=== PATIENT | female | born 1945 | race African-American/Black ===

== ENCOUNTER 2017-11-14 13:09 | Emergency (ER) | payer OTHER ==
[~2017-11-14] VITALS: Ht 165.1 cm; Wt 69.8 kg
--- NOTE | ~2017-11-14 | EKG ---
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
[~2017-11-14 13:09] MED LIST: AFEDITAB CR60 MG PO; ALDACTONE25 MG PO; AMLODIPINE BESYL5 M1 PO; ASPIR 8181 MG PO; ASPIRIN EC81 M1 PO; ASPIRIN325 PO; ATORVASTATIN CA40 MG PO; BENTYL 10 MG CA10 M1 PO; BETAXOLOL HCL20 MG PO; BYSTOLIC2.5 MG PO; CARVEDILOL12.5 MG PO; CATAPRES-TTS 10.1 MG PO; CLONIDINE HCL0.2 M2 PO; CLONIDINE0.1 PO; COD LIVER OIL1 EAC4 PO; COLACE100 MG PO; COREG6.25 MG PO; CORGARD20 M1 PO; COZAAR 50 MG TA50 M1 PO; COZAAR 50 MG TA50 M2 PO; CRESTOR20 MG PO; GARLIC OIL1 EACH PO; GLIPIZIDE ER10 MG PO; HYDROCHLOROTHIA25 M2 PO; IRON325 PO; KEFLEX500 MG PO; LANTUS SUBQ; LASIX 40 MG TAB40 M2 PO; LIPITOR40 MG PO; LOSARTAN-HCTZ1 EAC1 PO; METHOCARBAMOL500 M1 PO; METOLAZONE 2.52.5 M1 PO; NAPRO60 GM PO; NAPROSYN500 MG PO; NITROGLYCERIN0.4 MG SUBLING; NORCO 5-325 TA1 EACH PO; NORVASC10 MG PO; NORVASC5 MG PO; NOVOLOG100 UNIT/1 SUBQ; PLAVIX 75 MG TA75 M1 PO; SPIRONOLACT/HCT1 TA1 PO; SPIRONOLACTONE25 M1 PO; TOUJEO SOL300 UNIT/1 SUBQ; TRAMADOL 50 MG50 MG PO; ZANAFLEX4 MG PO
[2017-11-14] MEDS ORDERED: COZAAR100 MG PO (13:33)
[2017-11-14] MEDS ORDERED: CLONIDINE0.1 PO (13:34)
[2017-11-14] MEDS ORDERED: METOLAZONE 2.52.5 MG PO (13:36)
[2017-11-14] MEDS ORDERED: SPIRONOLACTONE25 M1 PO (13:38)
[2017-11-14] MEDS ORDERED: FUROSEMIDE 40 M40 MG PO (13:38)
[2017-11-14] MEDS ORDERED: TERAZOSIN HCL5 MG PO (13:39)
[2017-11-14] MEDS ORDERED: TOUJEO SOL300 UNIT/1 (13:41)
[2017-11-14 14:12] LABS: HEMOGLOBIN 9.3 gm/dL (12.0-15.0); MCH 29.5 pg (26.0-34.0); MCHC 33.2 g/dL (28.0-37.0); PLATELET COUNT 248 thou/uL (150-400); RBC 3.15 mil/uL (4.20-5.00); RDW 15.8 % (10.5-14.5); WBC 5.2 thou/uL (4.0-11.0)
[2017-11-14 15:00] LABS: ABSOLUTE NEUTROPHILS 3.6 thou/uL (1.4-8.2)
[2017-11-14 15:08] LABS: ANION GAP 9 mmol/L (7-16); BUN 79 mg/dL (7-18); CALCIUM 9.4 mg/dL (8.5-10.1); CHLORIDE 105 mmol/L (98-107); CO2 24 mmol/L (21-32); CREATININE 3.5 mg/dL (0.6-1.0); GLUCOSE 140 mg/dL (74-106); POTASSIUM 4.3 mmol/L (3.5-5.1); SODIUM 138 mmol/L (136-145)
[2017-11-14 15:17] LABS: ALBUMIN 3.4 g/dL (3.4-5.0); LIPASE 299 U/L (73-393); SGOT 29 U/L (15-37); SGPT 22 U/L (30-65); TOTAL BILIRUBIN 0.6 mg/dL (<0.1-1.0); TOTAL PROTEIN 7.7 g/dL (6.4-8.2); TROPONIN-I <0.06 ng/mL (<0.06)
[2017-11-14 15:31] LABS: URINE BILIRUBIN NEGATIVE (Negative); URINE BLOOD TRACE (Negative); URINE CLARITY CLEAR; URINE COLOR YELLOW; URINE GLUCOSE-RANDOM* NEGATIVE (Negative); URINE KETONES NEGATIVE (Negative); URINE NITRITE-REFLEX NEGATIVE (Negative); URINE PROTEIN (DIPSTICK) 2+ (Negative); URINE SPECIFIC GRAVITY 1.015 (1.005-1.035); URINE UROBILINOGEN 0.2 E.U./dl (0.2-1.0)
[2017-11-14 15:32] LABS: URINE LEUKOCYTES-REFLEX TRACE (Negative)
[2017-11-14] MEDS ORDERED: CIPRO500 MG PO (15:50)
[2017-11-14] MEDS ORDERED: FLAGYL500 MG PO (15:50)
[2017-11-14] MEDS ORDERED: PHENERGAN 25 MG25 M1 PO (15:51)
[2017-11-14 15:52] LABS: SQUAMOUS >10 Many /LPF (0-3)
[2017-11-14 15:53] LABS: BACTERIA-REFLEX None Seen /HPF (None Seen); CASTS None Seen /LPF (None Seen); CRYSTALS None Seen /LPF (None Seen); RENAL EPITHELIAL CELLS 0-3 Few /LPF (None Seen); URINE RBC 0-2 Rare /HPF (0-2); URINE WBC-REFLEX 0-5 Rare /HPF (0-5)
== END 2017-11-14 16:05 | disposition home or self-care (01) ==
LOC: ER 13:09
PROVIDERS: Physician Assistant
DX: I12.9 Hypertensive chronic kidney disease with stage 1 through stage 4 chronic kidney disease, or unspecified chronic kidney disease (principal); N18.9 Chronic kidney disease, unspecified; R19.7 Diarrhea, unspecified; E11.22 Type 2 diabetes mellitus with diabetic chronic kidney disease; I25.10 Atherosclerotic heart disease of native coronary artery without angina pectoris; E11.40 Type 2 diabetes mellitus with diabetic neuropathy, unspecified; Z95.5 Presence of coronary angioplasty implant and graft; Z86.73 Personal history of transient ischemic attack (TIA), and cerebral infarction without residual deficits; Z90.49 Acquired absence of other specified parts of digestive tract; Z86.2 Personal history of diseases of the blood and blood-forming organs and certain disorders involving the immune mechanism; Z79.4 Long term (current) use of insulin

== ENCOUNTER 2018-06-17 00:46 | Inpatient (IN) | payer OTHER ==
[2018-06-17] VITALS (8 sets, daily range): BP systolic 140–200; BP diastolic 43–70
[~2018-06-17] VITALS: Ht 165.1 cm; Wt 74.4 kg
--- NOTE | ~2018-06-17 | HC ---
[facility] [place] [address] CONSULTATION Name: MAR CHUN Room #: 213-P ADM IN M.R.#: [id number] Admission: 06/17/18 ������������������ Attend Phys: Ludwin Cherry MD Discharge: ������������������ Date of : 45 Report #: [id number] THIS REPORT FOR: //name// CC: Kenyon Cherry DATE OF SERVICE: 06/17/2018 REASON FOR CONSULTATION: Chronic kidney disease. HISTORY OF PRESENT ILLNESS: The patient is well known to our service, has chronic kidney disease, recent creatinine in the office at 4.2, longstanding diabetes with diabetic nephropathy. She developed chest pain on the left side of her chest requiring nitroglycerin a few days ago and this recurred yesterday and she came to the hospital and was admitted. Troponin I was elevated. Of note, in 2014, she had a heart catheterization at that time had a circumflex coronary artery with 90% stenosis, underwent angioplasty and had a drug-eluting stent placed at that time. She apparently has been relatively free of chest pain until this admission. PAST MEDICAL HISTORY: Longstanding diabetes mellitus with peripheral neuropathy, known chronic kidney disease, progressive elevation in creatinine, which was 3.7 or so 2 years ago and now only up to 4.2 in the office, 4.3 here today, previous cholecystectomy. She has had some retinopathy and had injections in her eyes and she has had previous cataract surgery. HOME MEDICATIONS: As listed include insulin, iron, aspirin 81 mg daily, atorvastatin 40 mg daily, amlodipine 5 mg b.i.d., losartan 100 mg b.i.d., clonidine 0.1 mg b.i.d., metolazone 2.5 mg daily, spironolactone 25 mg every other day, furosemide 40 mg twice a day, terazosin 5 mg daily. She also has anemia requiring Procrit injections in the office. FAMILY HISTORY: Negative for kidney disease. SOCIAL HISTORY: Lives at home. REVIEW OF SYSTEMS: GENERAL: Otherwise, she has been feeling reasonably well. EYES: Vision reasonably good. She has been getting these injections for retinopathy. ENT: Hearing okay, swallows okay. Denies mouth sores or ulcers. ENDOCRINE: Positive for the diabetes. RESPIRATORY: Denies current shortness of air. CARDIAC: She has had the angina as mentioned. No palpitations. GASTROINTESTINAL: No nausea, vomiting or diarrhea. [facility] [address] [place] [address] CONSULTATION Name: MAR CHUN Room #: 213-P [facility] IN .R.#: [id number] Admission: 06/17/18 ������������������ Attend Phys: Ludwin Cherry MD Discharge: ������������������ Date of : 45 Report #: [id number] GENITOURINARY: Good urinary stream. No hematuria or stone disease. NEUROLOGIC: She has got a little bit of numbness and tingling in her feet. PHYSICAL EXAMINATION: GENERAL: This is a somewhat stable ill-appearing patient seen in bed uncomfortable in the CCU. SKIN: Unremarkable. SKELETAL: Well developed, well nourished. No amputations. HEENT: Extraocular movements are full. Vision grossly intact. No scleral icterus. Hearing intact. Mucous membranes moist. Tongue and buccal mucosa are benign. NECK: Supple. I hear no carotid bruits, no lymphadenopathy. CHEST: Shows very scanty crackles at the lung bases. HEART: Regular. ABDOMEN: Soft and nontender. EXTREMITIES: Show no edema. Pulses are intact. NEUROLOGIC: Grossly intact. LABORATORY DATA: Creatinine 4.3, hemoglobin 9.4, potassium 4.8. Troponin I is 0.19. ASSESSMENT AND PLAN: 1. Chronic kidney disease. She has progressive chronic kidney disease. She is getting close to the need for a fistula. She is certainly at increased risk for any sort of angiographic dye procedure including cardiac catheterization. Certainly if she does become a candidate, we will have to be careful with her losartan to be sure we give her enough IV fluids, try to in someway limit her dye exposure and optimize her fluid volume status. She needs to get a stress test. 2. 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 3. Diabetes mellitus with triopathy. 4. History of coronary artery disease, status post prior circumflex stent. 5. Anemia with erythropoietic stimulating agent administration. ��������������������������������������������� ���������������������������������������� By: ��������������������������������������������� 1033 0139 Blaine Francisco MD /nt
[~2018-06-17 00:46] MED LIST changes: +CIPRO500 MG PO; +COZAAR100 MG PO; +FLAGYL500 MG PO; +FUROSEMIDE 40 M40 MG PO; +METOLAZONE 2.52.5 MG PO; +PHENERGAN 25 MG25 M1 PO; +TERAZOSIN HCL5 MG PO; +TOUJEO SOL300 UNIT/1
[2018-06-17 01:04] LABS: ABSOLUTE NEUTROPHILS 3.5 thou/uL (1.4-8.2); BASOPHILS 1.4 % (0.0-2.0); EOSINOPHILS 0.9 % (0.0-3.0); HEMOGLOBIN 9.4 gm/dL (12.0-15.0); LYMPHOCYTES 33.9 % (24.0-44.0); MCH 28.3 pg (26.0-34.0); MCHC 32.5 g/dL (28.0-37.0); PLATELET COUNT 198 thou/uL (150-400); POLYS 54.8 % (36.0-66.0); RBC 3.33 mil/uL (4.20-5.00); RDW 17.9 % (10.5-14.5); WBC 6.4 thou/uL (4.0-11.0)
[2018-06-17 01:12] LABS: ANION GAP 11 mmol/L (7-16); BUN 105 mg/dL (7-18); CALCIUM 8.5 mg/dL (8.5-10.1); CHLORIDE 101 mmol/L (98-107); CO2 25 mmol/L (21-32); CREATININE 4.3 mg/dL (0.6-1.0); GLUCOSE 231 mg/dL (74-106); POTASSIUM 4.8 mmol/L (3.5-5.1); SODIUM 137 mmol/L (136-145)
[2018-06-17 01:21] LABS: ALBUMIN 3.8 g/dL (3.4-5.0); SGOT 25 U/L (15-37); SGPT 25 U/L (30-65); TOTAL BILIRUBIN 0.2 mg/dL (<0.1-1.0); TOTAL PROTEIN 7.8 g/dL (6.4-8.2); TROPONIN-I <0.06 ng/mL (<0.06)
--- NOTE | 2018-06-17 03:09 | NUR ---
PT ADMITTED FROM ED WITH CHEST PAIN.PT HAS PREVIOUS HISTORY OF STENT IN 2015.PT ARRIVED TO UNIT VIA CART ACCOMPNIED BY FAMILY.A/OX4.FOLLOWS COMMNADS APROPRIATELY.VSS,DENIES CHEST PAIN UPON ARRIVAL TO UNIT.VIDEOTAPE OPERATOR NOTIFIED OF PT'S ARRIVAL TO UNIT.ASSESSMNET DOCUMENTED.SINUS RHYTHM ON MONITOR.UP WITH STEADY GAIT TO BATHROOM.PT DENIES ANY NEEDS AT THIS TIME.ADMISSION PAPERWORK SIGNED BY THE PT.WILL CONT TO MONITOR PER POC.
[2018-06-17 07:04] LABS: CHOLESTEROL 95 mg/dL (<200); HDL CHOLESTEROL 50 mg/dL (>40); LDL CHOLESTEROL 42.00001 mg/dL (<100); TC:HDL 1.9 Ratio (Not establshd); TRIGLYCERIDE < 15 mg/dL (<150); VLDL 3 mg/dL (<40)
--- NOTE | 2018-06-17 07:24 | EKG ---
[address] [place] [address] ELECTROCARDIOGRAM REPORT Name: MAR CHUN Room #: 213-P ADM IN M.R.#: [id number] ������������������ Admission: 06/17/18 ������������������ Attend Phys: Ludwin Cherry MD Discharge: ������������������ Date of : 45 Report #: [id number] ����������������������������������������������������������������� [id number] THIS REPORT FOR: //name// [facility] ED Test Date: 2018-06-17 Test Time: 00:48:27 Pat Name: MAR CHUN Department: Room: 213 Gender: F Loading Supervisor: SCOTT : 1945 Requested By: Muna Ortega Order Number: [id number] MD: Torito Burt Measurements Intervals [place] Rate: 86 P: 49 [place]: 158 QRS: -1 QRSD: 82 T: 151 QT: 320 QTc: 383 Interpretive Statements Sinus rhythm Poor R wave progression Nonspecific ST and T wave abnormality Compared to ECG 11/14/2017 14:16:44 Atrial premature complex(es) no longer present Electronically Signed On 06-17-2018 7:24:23 CDT by Torito Burt [email or web address] ��������������������������������������������� <ELECTRONICALLY SIGNED> ���������������������������������������� By: Torito Burt MD, [facility] ��������������������������������������������� 06/17/18 0724 0048 0048 Torito Burt MD, [facility] /EPI
--- NOTE | 2018-06-17 08:06 | EKG ---
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: : 1945 Requested By: Libertad Meraz Order Number: [id number] MD: Roel Crespo Measurements Intervals [place] Rate: 73 P: 50 AR: 168 QRS: -1 QRSD: 93 T: 174 QT: 380 QTc: 419 Interpretive Statements Sinus rhythm Nonspecific T abnormalities, lateral leads Compared to ECG 06/17/2018 00:48:27 T-wave abnormality now present Poor R-wave progression no longer present ST (T wave) deviation no longer present Electronically Signed On 06-17-2018 8:06:30 CDT by Roel Crespo [email or web address] ��������������������������������������������� <ELECTRONICALLY SIGNED> ���������������������������������������� By: Roel Crespo MD ��������������������������������������������� 06/17/18805 4 4 Roel Crespo MD /EPI
[2018-06-17 09:07] LABS: % SATURATION 36 % (20-39); IRON 76 ug/dL (50-170); TIBC 210 ug/dL (250-450)
[2018-06-17 09:34] LABS: FOLIC ACID 19.2 ng/mL (8.6-58.9)
--- NOTE | 2018-06-17 12:59 | 2DMMODE ---
[facility] [address] [place] [address] 2 D/M-MODE ECHOCARDIOGRAM Name: MAR CHUN Room #: 213-P ADM IN M.R.#: [id number] ������������� Admission: 06/17/18 ������������� Attend Phys: Ludwin Cherry, Discharge: ��� ������������� ��� Date of : 45 Date of Service: 06/17/18 1259 �� Report #: [id number] �������� ��������������������������������������������[id number] THIS REPORT FOR: //name// APPROVED REPORT Study performed: 06/17/2018 10:52:14 EXAM: Comprehensive 2D, Doppler, and color-flow Echocardiogram Patient Location: Bedside Room #: 213 Status: routine BSA: 1.82 HR: 73 bpm BP: 156/51 mmHg Rhythm: NSR Other Information Study Quality: Adequate Indications Diabetes Dyspnea CAD Chest Pain Hypertension/HDD 2D Dimensions RVDd: 37.72 mm IVSd: 15.03 (7-11mm) LVOT Diam: 19.11 (18-24mm) LVDd: 47.91 mm PWd: 14.59 (7-11mm) Ascending Ao: 25.80 (22-36mm) LVDs: 29.22 (25-40mm) Aortic Root: 25.56 mm IVC: 22.00 mm Volumes Left Atrial Volume (Systole) Single Plane 4CH: 101.58 mL Single Plane 2CH: 68.65 mL LA ESV Index: 49.00 mL/m2 Aortic Valve AoV Peak Chris.: 2.29 m/s AO Peak Gr.: 17.30 mmHg LVOT Max P.10 mmHg AO Mean Gr.: 11.51 mmHg LVOT Mean P.67 mmHg AO V2 Mean: 1.58 m/s LVOT Max V: 1.09 m/s AO V2 VTI: 48.05 cm LVOT Mean V: 0.76 m/s [facility] [address] [place] [address] 2 D/M-MODE ECHOCARDIOGRAM Name: MAR CHUN Room #: 213-P [facility] IN ..#: [id number] ������������� Admission: 06/17/18 ������������� Attend Phys: Ludwin Cherry, Discharge: ��� ������������� ��� Date of : 45 Date of Service: 06/17/18 1259 �� Report #: [id number] �������� ��������������������������������������������[id number] MARYJANE (VTI): 1.58 cm2 LVOT V1 VTI: 26.40 cm MARYJANE Vmax: 1.37 cm2 SV (LVOT): 75.69 mL Mitral Valve E/A Ratio: 1.6 MV Decel. Time: 240.12 ms MV E Max Chris.: 1.17 m/s MV A Chris.: 0.71 m/s MV PHT: 69.63 ms IVRT: 69.20 ms Pulmonary Valve PV Peak Chris.: 1.28 m/s PV Peak Gr.: 6.54 mmHg Pulmonary Vein P Vein S: 0.65 m/s P Vein A: 0.30 m/s P Vein D: 0.61 m/s P Vein A Dur.: 115.3 msec P Vein S/D Ratio: 1.07 Tricuspid Valve TR Peak Chris.: 3.43 m/s TR Peak Gr.: 47.00 mmHg PA Pressure: 57.00 mmHg Left Ventricle The left ventricle is normal size. There is normal LV segmental wall motion. Mild to moderate concentric left ventricular hypertrophy. Left ventricular systolic function is hyperdynamic. LVEF is 65-70%. Moderate diastolic dysfunction is present (pseudonormal filling). Right Ventricle The right ventricle is normal size. The right ventricular systolic function is normal. Atria Left atrium is dilated. Right atrium is dilated. Aortic Valve Aortic valve is calcified. Trace aortic regurgitation. Mild aortic stenosis. Mitral Valve The mitral valve is normal in structure. Mild mitral regurgitation. No evidence of mitral valve stenosis. [facility] [address] [place] [address] 2 D/M-MODE ECHOCARDIOGRAM Name: MAR CHUN Room #: 213-P [facility] IN M.R.#: [id number] ������������� Admission: 06/17/18 ������������� Attend Phys: Ludwin Cherry, Discharge: ��� ������������� ��� Date of : 45 Date of Service: 06/17/18 1259 �� Report #: [id number] �������� ��������������������������������������������[id number] Tricuspid Valve The tricuspid valve is normal in structure. There is mild tricuspid regurgitation. Estimated PAP 55 mmHg. There is moderate pulmonary hypertension. Pulmonic Valve The pulmonary valve is normal in structure. Trace pulmonic regurgitation. Great Vessels The aortic root is normal in size. IVC is dilated and collapses <50% with inspiration. Pericardium Small pericardial effusion. <Conclusion> Left ventricular systolic function is hyperdynamic. There is normal LV segmental wall motion. LVEF is 65-70%. Moderate diastolic dysfunction Both atria are dilated. Aortic valve is calcified. Trace aortic regurgitation. Mild aortic stenosis. The mitral valve is normal in structure. Mild mitral regurgitation Pulmonary artery pressure of 55mmHg. Small pericardial effusion. ��������������������������������������������� <ELECTRONICALLY SIGNED> ���������������������������������������� By: Torito Burt MD, FACC ��������������������������������������������� 06/17/18 1259 1259 1259 Torito Burt MD, FACC /INF
--- NOTE | 2018-06-17 17:49 | NUR ---
ASSUMED CARE, ASSESSMENT CHARTED, ALERT AND ORIENTED X4, ACHS BS, SALINE LOCK LFA, NO COMPLAINTS OF PAIN OR DISCOMFORT, FAMILY AT BEDSIDE.
[2018-06-18 04:00] VITALS: BP 135/56
[2018-06-18 05:22] LABS: ALBUMIN 3.6 g/dL (3.4-5.0); CALCIUM 9.4 mg/dL (8.5-10.1); CREATININE 4.4 mg/dL (0.6-1.0); PHOSPHORUS 3.8 mg/dL (2.5-4.9); POTASSIUM 4.8 mmol/L (3.5-5.1)
--- NOTE | 2018-06-18 05:58 | NUR ---
ASSUMED PT CARE AT 1900 WITH NO SIGN OF DISTRESS NOTED. AT THE BEGINNING OF THE SHIFT, PT STARTS TO HAVE CHILLS AND WAS COLD. PT STATES THAT THIS HAPPENS OFTEN. TEMP WAS NORMAL, NO FEVER, PT STATED SHE NEEDED BLANKET AND SHE SAYS IT IS DUE TO HER LOW IRON LEVEL. SCHEDULED MEDS ADMINISTERED TO PT. PT TOLERATED PO INTAKE. FAMILY AT BEDSIDE. DENIES ANY FURTHER NEEDS AT THIS TIME.
[2018-06-18 08:29] VITALS: BP 149/61
[2018-06-18 12:20] VITALS: BP 133/55
--- NOTE | 2018-06-18 15:48 | NUR ---
ASSUMED CARE AT 0700. PT A&OX4. PT GETS UP TO COMMODE WITH STAND BY ASSIST. PT STEADY ON FEET. PT DENIES ANY CHEST PAIN AT THIS TIME. WILL CONTINUE TO CLOSELY MONITOR PT. PT HAS HAD DAUGHTER AND NOW ANOTHER FAMILY MEMBER AT BEDSIDE ENTIRE SHIFT.
[2018-06-18 16:00] VITALS: BP 159/51
[2018-06-18 19:42] VITALS: BP 147/49
--- NOTE | 2018-06-19 03:55 | NUR ---
RECEIVE PT'S CARE AT 1920; PT. ON BED; RELATIVE AT THE BED SIDE; C/O 5TH METHATARSO PAIN; / DURING ASSESSMENT; ST. ABLE TO AMBULATE WITHOUT AIDS; VS WNL; BS 78 AT HS; JESSICA AND JARRETT LYONS CRACKERS GIVEN; BS AT MIDNIGHT 197; PT. ABLE TO REST THROUGH THE NIGHT; ASSESSMENT CHARGED; FOLLOWING POC; WILL MONITOR BS EARLY ON THE MORNING; WILL PASS ON REPORT.
[2018-06-19 04:35] VITALS: BP 146/55
[2018-06-19 05:51] LABS: ALBUMIN 3.3 g/dL (3.4-5.0); CALCIUM 9.1 mg/dL (8.5-10.1); CREATININE 4.4 mg/dL (0.6-1.0); PHOSPHORUS 3.9 mg/dL (2.5-4.9)
[2018-06-19 07:30] VITALS: BP 150/52
[2018-06-19] MEDS ORDERED: LANTUS100 UNIT/M SUBQ (10:36)
[2018-06-19 11:05] VITALS: BP 150/52
--- NOTE | 2018-06-19 12:26 | NUR ---
DISCHARGE ORDER RECEIVED, SCRIPT GIVEN. PERIPHEARL IV WAS TAKEN OUT. WAS TRANSPORTED OUT BY NURSING STAFF.
== END 2018-06-19 12:28 | disposition home or self-care (01) | DRG 303 ==
LOC: ER 00:46 → 2N 01:29 → EROBS 01:29 → 2N 01:50
PROVIDERS: Internal Medicine Nephrology; Nurse Practitioner Acute Care; Student in an Organized Health Care Education/Training Program; ADMIT Internal Medicine
DX: I25.119 Atherosclerotic heart disease of native coronary artery with unspecified angina pectoris (principal); N17.9 Acute kidney failure, unspecified; I13.0 Hypertensive heart and chronic kidney disease with heart failure and stage 1 through stage 4 chronic kidney disease, or unspecified chronic kidney disease; N18.5 Chronic kidney disease, stage 5; E11.42 Type 2 diabetes mellitus with diabetic polyneuropathy; E11.22 Type 2 diabetes mellitus with diabetic chronic kidney disease; I16.0 Hypertensive urgency; D63.8 Anemia in other chronic diseases classified elsewhere; Z60.2 Problems related to living alone; M62.838 Other muscle spasm; E11.319 Type 2 diabetes mellitus with unspecified diabetic retinopathy without macular edema; I50.9 Heart failure, unspecified; Z79.4 Long term (current) use of insulin; Z95.5 Presence of coronary angioplasty implant and graft; Z86.73 Personal history of transient ischemic attack (TIA), and cerebral infarction without residual deficits; Z98.42 Cataract extraction status, left eye; Z98.41 Cataract extraction status, right eye; Z88.8 Allergy status to other drugs, medicaments and biological substances; Z79.82 Long term (current) use of aspirin; Z79.899 Other long term (current) drug therapy
CPT/HCPCS: 10081

== ENCOUNTER 2018-12-01 17:07 | Inpatient (IN) | payer OTHER ==
[~2018-12-01] VITALS: Ht 165.1 cm; Wt 71.6 kg
[~2018-12-01 17:07] MED LIST changes: +LANTUS100 UNIT/M SUBQ
[2018-12-01 18:22] LABS: HEMOGLOBIN 8.3 gm/dL (12.0-15.0); MCV 85.2 fL (80.0-100.0); RBC 2.94 mil/uL (4.20-5.00)
[2018-12-01 18:23] LABS: ABSOLUTE NEUTROPHILS 4.1 thou/uL (1.4-8.2); BASOPHILS 0.7 % (0.0-2.0); EOSINOPHILS 0.3 % (0.0-3.0); LYMPHOCYTES 17.8 % (24.0-44.0); MCH 28.4 pg (26.0-34.0); MCHC 33.3 g/dL (28.0-37.0); MONOCYTES 7.8 % (1.0-8.0); PLATELET COUNT 205 thou/uL (150-400); POLYS 73.4 % (36.0-66.0); RDW 17.5 % (10.5-14.5); WBC 5.6 thou/uL (4.0-11.0)
[2018-12-01 18:33] LABS: CALCIUM 9.3 mg/dL (8.5-10.1); POTASSIUM 3.6 mmol/L (3.5-5.1)
[2018-12-01 18:36] LABS: APTT 26.5 Seconds (24.5-32.8); INR 1.1; PROTIME 11.1 Seconds (9.3-11.4)
[2018-12-01 18:40] LABS: TOTAL BILIRUBIN 0.4 mg/dL (<0.1-1.0); TOTAL PROTEIN 7.5 g/dL (6.4-8.2)
[2018-12-01] MEDS ORDERED: TOUJEO SOL300 UNIT/1 (19:00)
[2018-12-01 22:05] VITALS: BP 186/77
[2018-12-01 22:11] VITALS: BP 176/65
[2018-12-01 23:32] LABS: CHOLESTEROL 123 mg/dL (<200); HDL CHOLESTEROL 62 mg/dL (>40); LDL CHOLESTEROL 52 mg/dL (<100); SERUM ASSESSMENT Clear; TRIGLYCERIDE 48 mg/dL (<150); VLDL 10 mg/dL (<40)
[2018-12-01 23:42] VITALS: BP 188/72
[2018-12-02] VITALS (19 sets, daily range): BP systolic 124–178; BP diastolic 49–72
--- NOTE | 2018-12-02 04:01 | NUR ---
Admission history and assessments completed. Care plan initiated. High fall risks, fall precautions in place.
--- NOTE | 2018-12-02 06:55 | NUR ---
Patient c/o left sided chest pain 5/10. BP 149/49 HR 70's. Nitro SL given x1. Gradual chest pain relief down to 3 then 0 after 1 Nitro.
--- NOTE | 2018-12-02 09:21 | EKG ---
[address] [address] ELECTROCARDIOGRAM REPORT Name: MAR CHUN Room #: 361-P ADM IN M.R.#: [id number] Admission: 12/01/18 Attend Phys: Ludwin Cherry MD Discharge: Date of : 45 Report #: [id number] THIS REPORT FOR: //name// [facility] Test Date: 2018-12-02 Test Time: 08:17:05 Pat Name: MAR CHUN Department: Room: [facility] Gender: F Hypnotherapist: Rhonda VILLASENOR : 1945 Requested By: Bairon Wellington Order Number: [id number] MD: Torito Burt Measurements Intervals [place] Rate: 69 P: 63 OK: 162 QRS: 7 QRSD: 93 T: 186 QT: 436 QTc: 467 Interpretive Statements Sinus rhythm Abnormal T, consider ischemia, diffuse leads Compared to ECG 06/17/2018 07:25:53 T-wave abnormality is more pronounced Electronically Signed On 12-02-2018 9:20:54 CDT by Torito Burt [email or web address] <ELECTRONICALLY SIGNED> By: Torito Burt MD, FAC 12/02/18919 6 6 Torito Burt MD, FAC /EPI
--- NOTE | 2018-12-02 10:11 | 2DMMODE ---
[facility] [address] [facility] [place] [address] 2 D/M-MODE ECHOCARDIOGRAM Name: MAR CHUN Room #: 361-P ADM IN M.R.#: [id number] Admission: 12/01/18 Attend Phys: Ludwin Cherry, Discharge: Date of : 45 Report #: [id number] THIS REPORT FOR: //name// APPROVED REPORT Study performed: 12/02/2018 09:06:23 EXAM: Comprehensive 2D, Doppler, and color-flow Echocardiogram Patient Location: Echo lab Room #: [facility] Status: routine BSA: 1.78 HR: 70 bpm BP: 154/56 mmHg Rhythm: NSR Other Information Study Quality: Adequate Indications Diabetes CAD Chest Pain Hypertension/HDD 2D Dimensions RVDd: 43.78 mm IVSd: 14.99 (7-11mm) LVOT Diam: 19.17 (18-24mm) LVDd: 49.08 mm PWd: 14.56 (7-11mm) Ascending Ao: 28.36 (22-36mm) LVDs: 27.24 (25-40mm) Aortic Root: 24.93 mm IVC: 20.00 mm Volumes Left Atrial Volume (Systole) Single Plane 4CH: 106.36 mL Single Plane 2CH: 85.28 mL LA ESV Index: 59.00 mL/m2 Aortic Valve AoV Peak Chris.: 2.62 m/s AO Peak Gr.: 27.43 mmHg LVOT Max P.23 mmHg AO Mean Gr.: 13.31 mmHg LVOT Mean P.72 mmHg AO V2 Mean: 1.64 m/s LVOT Max V: 1.14 m/s AO V2 VTI: 56.04 cm LVOT Mean V: 0.74 m/s MARYJANE (VTI): 1.39 cm2 LVOT V1 VTI: 27.05 cm [facility] [place] [address] 2 D/M-MODE ECHOCARDIOGRAM Name: MAR CHUN Room #: 361-P [facility] IN .R.#: [id number] Admission: 12/01/18 Attend Phys: Ludwin Cherry, Discharge: Date of : 45 Report #: [id number] MARYJANE Vmax: 1.26 cm2 SV (LVOT): 78.02 mL Mitral Valve E/A Ratio: 2.0 MV Decel. Time: 204.30 ms MV E Max Chris.: 1.44 m/s MV A Chris.: 0.73 m/s MV PHT: 59.25 ms IVRT: 48.44 ms Pulmonary Valve PV Peak Chris.: 1.46 m/s PV Peak Gr.: 8.69 mmHg Pulmonary Vein P Vein S: 0.68 m/s P Vein A: 0.26 m/s P Vein D: 0.78 m/s P Vein A Dur.: 159.2 msec P Vein S/D Ratio: 0.87 Tricuspid Valve TR Peak Chris.: 3.41 m/s RAP Estimate: 10.00 mmHg TR Peak Gr.: 46.59 mmHg PA Pressure: 57.00 mmHg Left Ventricle The left ventricle is normal size. There is normal LV segmental wall motion. Mild concentric left ventricular hypertrophy. The left ventricular systolic function is normal. The left ventricular ejection fraction is within the normal range. LVEF is 65%. Moderate diastolic dysfunction is present (pseudonormal filling). Right Ventricle The right ventricle is normal size. The right ventricular systolic function is normal. Atria Left atrium is severely dilated. Right atrium is moderately dilated. Aortic Valve Aortic valve is calcified, mildly stenotic Trace aortic regurgitation. Calculated aortic valve area is 1.4 cm2 with maximum pressure gradient of 27 mmHg and mean pressure gradient of 13 mmHg. Mitral Valve [facility] [address] [place] [address] 2 D/M-MODE ECHOCARDIOGRAM Name: MAR CHUN Room #: 361-P [facility] IN ..#: [id number] Admission: 12/01/18 Attend Phys: Ludwin Cherry, Discharge: Date of : 45 Report #: [id number] The mitral valve is normal in structure. Mild mitral regurgitation. No evidence of mitral valve stenosis. Tricuspid Valve The tricuspid valve is normal in structure. Mild tricuspid regurgitation. PAP is estimated at 55 mmHg. Pulmonic Valve The pulmonary valve is normal in structure. Trace to mild pulmonic regurgitation. Great Vessels The aortic root is normal in size. IVC is upper limits of normal in size and collapses <50% with inspiration. Pericardium Small circumferential pericardial effusion unchanged from previous echo on 06/17/2018 <Conclusion> The left ventricular systolic function is normal. There is normal LV segmental wall motion. LVEF is 65%. Moderate diastolic dysfunction Aortic valve is calcified, mildly stenotic; trace insufficiency Calculated aortic valve area is 1.4 cm2 with maximum pressure gradient of 27 mmHg and mean pressure gradient of 13 mmHg. The mitral valve is normal in structure. Mild mitral regurgitation. Mild tricuspid regurgitation. Pulmonary artery pressure estimated at 55 mmHg. Small circumferential pericardial effusion unchanged from previous echo on 06/17/2018 <ELECTRONICALLY SIGNED> By: Torito Burt MD, FACC 12/02/18 1011 1011 1011 Torito Burt MD, FACC /INF
[2018-12-03] VITALS (9 sets, daily range): BP systolic 127–165; BP diastolic 53–75
[2018-12-03 00:08] LABS: GLYCOHEMOGLOBIN (HGB A1C) 7.3 % (4.8-5.6)
--- NOTE | 2018-12-03 04:31 | NUR ---
Patient making progress towards outcome goals. Sinus rhythm. One episode of left arm ache rating a 7/not relieved by nitro x 2. EKG obtained, no acute changes. Complete pain relief afater Hydrocodone x 1. Right groin dressing dry and intact.
[2018-12-03 05:42] LABS: HEMATOCRIT 23.6 % (37.0-47.0); HEMOGLOBIN 7.8 gm/dL (12.0-15.0); MCH 28.6 pg (26.0-34.0); MCHC 33.2 g/dL (28.0-37.0); MCV 86.1 fL (80.0-100.0); RBC 2.74 mil/uL (4.20-5.00); RDW 17.8 % (10.5-14.5); WBC 7.6 thou/uL (4.0-11.0)
--- NOTE | 2018-12-03 08:10 | EKG ---
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 Assurance Inspector: fabby : 1945 Requested By: Ludwin Cherry Order Number: [id number] MD: Torito Burt Measurements Intervals [place] Rate: 79 P: 29 OK: 166 QRS: 38 QRSD: 86 T: 242 QT: 379 QTc: 435 Interpretive Statements Sinus rhythm Nonspecific ST and T wave abnormality Baseline wander in lead(s) I,II,aVR Compared to ECG 12/02/2018 08:17:05 ST and T wave abnormality is less pronounced Electronically Signed On 12-03-2018 8:09:49 CDT by Torito Burt [email or web address] <ELECTRONICALLY SIGNED> By: Torito Burt MD, FACC 12/03/18 0809 06 06 Torito Burt MD, [facility] /EPI
[2018-12-03 08:44] LABS: ALBUMIN 3.6 g/dL (3.4-5.0); CALCIUM 8.7 mg/dL (8.5-10.1); CREATININE 4.4 mg/dL (0.6-1.0); POTASSIUM 3.7 mmol/L (3.5-5.1); TOTAL BILIRUBIN 0.3 mg/dL (<0.1-1.0); TOTAL PROTEIN 7.1 g/dL (6.4-8.2); TROPONIN-I 0.46 ng/mL (<0.06)
--- NOTE | 2018-12-03 15:31 | NUR ---
ASSESSMENT: CM REVIEWED CHART AND MET WITH PATIENT AT THE BEDSIDE. PT WAS ADMITTED WITH NSTEMI AND HAD STENT PLACED. PT REPORTS SHE LIVES AT HOME IN AN APT ALONE. PT REPORTS ABOUT 10-15 STEPS WITH HANDRAILS TO GET INTO THE APT. PT REPORTS SHE AMBULATES INDEPENDENTLY. PT REPORTS SHE HAS NOT HAD HH IN THE PAST OR BEEN TO A SNF. SHE STATES SHE IS TOO ACTIVE FOR THAT. PT REPORTS THAT SHE HAS AN APPT SCHEDULED AT THE END OF THIS MONTH FOR A POSSIBLE FISTULA FOR DIAYLSIS. RENAL IS SEEING PATIENT HERE AND IF NEEDED WILL INITIATE DIALYSIS WITH TUNNEDLED CATHETER AND COMMIT TO HEMODIALYSIS IF NEEDED. CM WAITING TO HEAR. PT ALSO WORKED WITH THERAPY AND RECOMMENDING SHE CAN RETURN HOME AT DISCHARGE. CM WILL CONTINUE TO FOLLOW TO ASSIST NEEDED.
--- NOTE | 2018-12-03 18:13 | CATHLAB ---
[facility] [address] [place] [address] INVASIVE PROCEDURE REPORT Name: MAR CHUN Room #: 361-P ADM IN ..#: [id number] Admission: 12/01/18 Attend Phys: Xavier Healy MD Discharge: Date of : 45 Report #: [id number] THIS REPORT FOR: //name// APPROVED REPORT Study performed: 12/02/2018 12:43:34 Patient Details Patient Status: In-Patient Room #: The patient is a 73 year-old female Event Personnel Blaine Atkins Hogshead Wrecker, Emiliano Ying RN, Tommy Loo RTR Jeramie, Daniel Kaur Monitor Procedures Performed Right and Left Heart Cath w/or w/o Coronarie [id number] RL SARAN Place w/wo Plasty Single RCA [id number] Renal Bilateral Peripheral Angiography [id number] CVRENALBIL Indication Chest pain Procedure Narrative The Right Groin^ was infiltrated with 1% Lidocaine subcutaneous anesthesia. A PINNACLE 6FR Sheath #[id number] sheath was inserted into the RFA^. Coronary angiography was performed using coronary diagnostic catheters. The right coronary system was accessed and visualized with a JR4 catheter. The left coronary system was accessed and visualized with a JL4 catheter. The left ventricle was accessed and visualized with a PIGTAIL catheter. Left ventriculogram was performed in 30 degree projection. Closure device was deployed with a 6 Fr MYNX. Hemostasis was obtained with manual pressure following sheath removal without any complications. The patient tolerated the procedure well and there were no complications associated with the procedure. There was no hematoma. Intraoperative Conscious Sedation Sedation start time: 13.21 Case end Time: 14.32 Fentanyl 100 mcg Versed 2.0 mg Fluoro Time: 12.56 minutes Dose: DAP 29223.00 cGycm2 1719 mGy Contrast Type and Amount: Omnipaque 125 ml [facility] [place] [address] INVASIVE PROCEDURE REPORT Name: MAR CHUN Room #: 361-P [facility] IN ..#: [id number] Admission: 12/01/18 Attend Phys: Xavier Healy MD Discharge: Date of : 45 Report #: [id number] Hemodynamics The right atrial mean pressure is 17 mmHg. The right ventricular pressure is 50/4 mmHg. The pulmonary artery pressure is 47/12 mmHg with a mean of 28 mmHg. The mean pulmonary capillary wedge pressure is 21 mmHg. The aortic pressure is 148/59 mmHg with a mean of 87 mmHg. The left ventricular pressure is 165/8 mmHg with a mean of mmHg. The left ventricular end diastolic pressure is 32 mmHg. PCI Technique Lesion Percutaneous coronary intervention was performed on the mid right coronary artery. A JR4 Guide Catheter was used to engage the ostium. A LUGE Interventional Guidewire was used to cross the lesion. BALLOON DILATION A Balloon catheter 2.25X12 SPRINTER was inserted and inflated up to 10.00atm for 18seconds. Additional Inflation: 8.00atm for 29seconds. STENT DEPLOYMENT A drug-eluting stent 2.5X12 XIENCE KARSON was inserted and inflated up to 14.00atm for 22seconds. Additional Inflation: 16.00atm for 26seconds. POST STENT DEPLOYMENT BALLOON DILATION A Balloon catheter 2.75X12 NC TREK was inserted and inflated up to 15.00atm for 27seconds. Additional Inflation: 18.00atm for 41seconds. Conclusion #1 successful PTCA stent of a subtotal proximal RCA lesion placement of a 2 5 x 12 Karson medicated stent postdilated 2.7 mm PHIL grade 3 flow dominant vessel with moderate calcification. #2 left main short free of disease giving rise to LAD and circumflex #3 LAD with proximal calcification mild diffuse disease is noted appears to be prior proximal stents placed with moderate restenosis this extends around the apex. #4 circumflex OM is a large vessel low-dose extensive distribution there is a mid circumflex stent which is widely patent and diffuse disease distally is moderate in size anatomically nondominant #5 right renal artery has eccentric lesion of 30-40%. #6 left renal artery with an eccentric lesion of 70-80% calcification will follow noninvasively #7 hyperdynamic LV function EF 70% [facility] [address] [place] [address] INVASIVE PROCEDURE REPORT Name: MAR CHUN Room #: 361-P [facility] IN ..#: [id number] Admission: 12/01/18 Attend Phys: Xavier Healy MD Discharge: Date of : 45 Report #: [id number] Regulations plan: Continue aggressive risk factor modification. We'll transfer back to U to follow post stent protocol. Renal stenosis will be follow noninvasively and discuss with nephrology. <ELECTRONICALLY SIGNED> By: Blaine Atkins MD, FACC 12/03/181812 12 12 Blaine Atkins MD, FACC /INF
--- NOTE | 2018-12-03 18:43 | NUR ---
DID COMPLAIN OF PAIN TO LEFT ARM AND PRN PAIN MEDICATION ADMINISTERED AND IT WAS EFFECTIVE. PATIENTIS ALERT ORIENTED X4. UP AD SAVANA. WILL CONT WITH PLAN OF CARE.
[2018-12-04] VITALS (8 sets, daily range): BP systolic 114–159; BP diastolic 46–69
[2018-12-04 04:57] LABS: HEMATOCRIT 21.2 % (37.0-47.0); HEMOGLOBIN 7.1 gm/dL (12.0-15.0); MCH 28.9 pg (26.0-34.0); MCHC 33.6 g/dL (28.0-37.0); RBC 2.46 mil/uL (4.20-5.00); RDW 17.4 % (10.5-14.5); WBC 8.7 thou/uL (4.0-11.0)
[2018-12-04 05:11] LABS: ALBUMIN 3.3 g/dL (3.4-5.0); CALCIUM 8.7 mg/dL (8.5-10.1); PHOSPHORUS 4.2 mg/dL (2.5-4.9); POTASSIUM 3.9 mmol/L (3.5-5.1)
[2018-12-04 05:15] LABS: CREATININE 5.9 mg/dL (0.6-1.0)
--- NOTE | 2018-12-04 05:23 | NUR ---
PT MAKING PROGRESS TOWARDS GOALS. PT HAS DENIED CHEST PAIN THROUGHOUT THE NIGHT UNTIL THIS MORNING. APPROXIMATELY 0420 PT C/O TOOTH PAIN ON BOTH SIDES OF HER LOWER JAW. "I'VE BEEN NEEDING TO GET TO THE DENTIST TO HAVE THESE TEETH PULLED AND JUST NOT MADE IT THERE YET." ASKED IF THE TOOTHACHE WAS THE SAME TYPE OF PAIN WITH PREVIOUS EPISODES OF TOOTH PAIN AND THE PT REPLIED "YES." DENIED ANY CHEST PAIN AND ALSO STATED THAT SHE WAS HAVING NO PAIN IN HER LEFT SHOULDER/ARM. DID PROVIDED ONE LORTAB FOR PAIN PER ORDERS AND DID PLACE PREVIOUSLY HELD NITROPASTE 1 INCH TO LEFT UPPER ARM PRECAUTION. WITHIN FIVE MINUTES, PT CALLED AND STATED THAT SHE FELT SUDDENLY NAUSEATED. WHEN ASKED IF THERE WAS ANY PRECURSOR TO THE NAUSEA SHE RELAYED THAT THERE A SUDDEN SPIKE IN THE TOOTH PAIN. DID AGAIN ASK ABOUT ANY CHEST PAIN AND SHE STATED SHE WAS THEN FEELING SOME HEAVINESS OVER HER CHEST. IV ZOFRAN GIVEN THAT RESOLVED THE NAUSEA WITHIN A FEW MINUTES. EKG DONE, DISCUSSED WITH PNEUMATIC TUBE FITTER. PT THEN STATED THAT THERE WAS NO MORE CHEST HEAVINESS, ONLY THE TOOTH PAIN. CONTINUE TO MONITOR.
--- NOTE | 2018-12-04 20:23 | NUR ---
PATIENT SLOW TO SHOW PROGRESS. LABS REVIEWED WITH PATIENT WELL PLAN OF CARE. SHE EXPRESSED SHE FEELS SCARED BECAUSE OF THE PLAN FOR DIALYSIS. NURSE PROVIDED REASSURANCE AND SAT IN HER ROOM TO TALK WITH HER TODAY. NURSE TALKED WITH DR. QUEEN ABOUT HEART RATE LOWEST KNOWN 46BPM. HE EXPRESSED THIS IS OK. THIS WAS EXPLAINED TO THE PATIENT.
[2018-12-05 04:02] VITALS: BP 121/53
[2018-12-05 06:01] LABS: CALCIUM 8.3 mg/dL (8.5-10.1); PHOSPHORUS 5.5 mg/dL (2.5-4.9); POTASSIUM 5.2 mmol/L (3.5-5.1)
[2018-12-05 06:05] LABS: CREATININE 8.2 mg/dL (0.6-1.0)
[2018-12-05 07:41] VITALS: BP 144/60
--- NOTE | 2018-12-05 08:33 | NUR ---
ASSUMED CARE OF PT AT 1900. A&Ox4, COOPERATIVE. VS STABLE OVER NOC. CRITICAL CREAT OF 8.2 THIS AM, SINTER FEEDER CONTACTED, NO NEW ORDERS. NO URINATION OVER NOC. SLOW PROGRESSION TOWARDS POC GOALS.
[2018-12-05 11:14] VITALS: BP 119/49
[2018-12-05 15:51] VITALS: BP 129/60
[2018-12-05 20:30] VITALS: BP 144/62
--- NOTE | 2018-12-05 21:22 | NUR ---
PT VERY CONFUSED AND DROWSY TODAY. EXTENSIVE DIALYSIS EDUCATION DONE WITH FAMILY.
[2018-12-06 03:30] VITALS: BP 152/59
[2018-12-06 05:32] LABS: WBC 6.3 thou/uL (4.0-11.0)
[2018-12-06 05:33] LABS: MCH 29.6 pg (26.0-34.0); MCHC 34.7 g/dL (28.0-37.0); MCV 85.1 fL (80.0-100.0); RBC 2.35 mil/uL (4.20-5.00); RDW 17.2 % (10.5-14.5)
[2018-12-06 05:42] LABS: ALBUMIN 2.8 g/dL (3.4-5.0); PHOSPHORUS 7.4 mg/dL (2.5-4.9); POTASSIUM 4.6 mmol/L (3.5-5.1)
[2018-12-06 05:50] LABS: INR 1.1; PROTIME 11.7 Seconds (9.3-11.4)
[2018-12-06 06:01] LABS: CREATININE 9.9 mg/dL (0.6-1.0)
[2018-12-06 07:36] VITALS: BP 127/59
--- NOTE | 2018-12-06 08:46 | EKG ---
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 : 1945 Requested By: Blaine Atkins Order Number: [id number] MD: Torito Burt Measurements Intervals [place] Rate: 86 P: 47 ND: 170 QRS: -3 QRSD: 88 T: 162 QT: 382 QTc: 457 Interpretive Statements Sinus rhythm Poor R wave progression Nonspecific ST and T wave abnormality Compared to ECG 12/02/2018 20:07:08 No significant change was found Electronically Signed On 12-06-2018 8:45:57 CDT by Torito Burt [email or web address] <ELECTRONICALLY SIGNED> By: Torito Burt MD, [facility] 12/06/18 0845 7 7 Torito Burt MD, [facility] /EPI
--- NOTE | 2018-12-06 08:58 | EKG ---
[place] [address] [facility] [employer] [address] ELECTROCARDIOGRAM REPORT Name: CHUNMAR RICK Room #: 361-P ADM IN M.R.#: [id number] Admission: 12/01/18 Attend Phys: Xavier Healy MD Discharge: Date of : 45 Report #: [id number] THIS REPORT FOR: //name// [facility] Test Date: 2018-12-04 Test Time: 05:00:55 Pat Name: MAR CHUN Department: Room: 361 P Gender: F Sheet Folder: BRIDGER New : 1945 Requested By: Xavier Healy Order Number: [id number] MD: Torito Burt Measurements Intervals [place] Rate: 105 P: 51 TN: 186 QRS: -2 QRSD: 100 T: 197 QT: 324 QTc: 429 Interpretive Statements Sinus tachycardia Poor R wave progression Nonspecific ST and T wave abnormality Compared to ECG 12/02/2018 20:07:08 No significant change was found Electronically Signed On 12-06-2018 8:57:52 CDT by Torito Burt [email or web address] <ELECTRONICALLY SIGNED> By: Torito Burt MD, [facility] 12/06/18 0857 0500 0500 Torito Burt MD, [facility] /EPI
--- NOTE | 2018-12-06 09:48 | NUR ---
PT OFF UNIT TO IR FOR DIALYSIS CATHETER.
--- NOTE | 2018-12-06 10:25 | NUR ---
ON-GOING ASSESSMENT: PT IS GOING OT IR TODAY FOR PLACEMENT OF TEMPORARY DIALYSIS CATHETER. CM SPOKE WITH DR. GONSALES WHO REPORTS PATIENT WANTS TO GET DIALYSIS OUTPATIENT AT [facility] AND TO WORK ON THIS PLAN. CM CONTACTED [facility] AND SPOKE WITH ROHITH TO NOTIFY HER WELL FAXED INFORMATION IN ATTEMPTS TO START GETTING PATIENT SET UP FOR OUTPATIENT DIALYSIS. CM WILL CONTIUE TO FOLLOW TO ASSIST NEEDED.
--- NOTE | 2018-12-06 10:49 | NUR ---
PT RETURN TO UNIT.
[2018-12-06 11:30] VITALS: BP 147/56
--- NOTE | 2018-12-06 12:49 | NUR ---
pt starting dialysis in room at thsi time.
[2018-12-06 15:33] LABS: % SATURATION 12 % (20-39); IRON 18 ug/dL (50-170); TIBC 148 ug/dL (250-450)
[2018-12-06 16:30] LABS: FOLIC ACID 48.6 ng/mL (8.6-58.9)
[2018-12-06 17:17] VITALS: BP 142/69
--- NOTE | 2018-12-06 19:31 | NUR ---
Patient had a right temporary dialysis catheter placed today and had dialysis this afternoon. Patient is working towards discharge goals.
[2018-12-06 19:48] VITALS: BP 150/62
--- NOTE | 2018-12-06 23:57 | NUR ---
having pain to rt incision site, where the dialysis catheter was placed 12/06. it continues to lenesegundo. report included that we should reinforce the dressing.
--- NOTE | 2018-12-07 03:31 | NUR ---
awoke with a feeling of dry throat tightness. oxyegn on the floor and temperature very hot in room with door shut. she wasy very nuseaous. her dialysis site is wicking fluid away from the incision site that is light pink. gave her some zofran and sheis feeling better, encouraged her to keep the oxygen on. she was 83% on room air. she is wearing 2.5 liters.
[2018-12-07 03:46] VITALS: BP 134/45
[2018-12-07 05:39] LABS: RDW 16.9 % (10.5-14.5); WBC 5.6 thou/uL (4.0-11.0)
[2018-12-07 05:43] LABS: MCH 29.2 pg (26.0-34.0); MCHC 34.5 g/dL (28.0-37.0); MCV 84.6 fL (80.0-100.0); RBC 2.03 mil/uL (4.20-5.00)
[2018-12-07 05:55] LABS: ALBUMIN 2.5 g/dL (3.4-5.0); CALCIUM 7.9 mg/dL (8.5-10.1); PHOSPHORUS 5.7 mg/dL (2.5-4.9); POTASSIUM 4.2 mmol/L (3.5-5.1)
[2018-12-07 05:56] LABS: HEMATOCRIT 17.2 % (37.0-47.0); HEMOGLOBIN 5.9 gm/dL (12.0-15.0)
[2018-12-07 06:09] LABS: CREATININE 6.8 mg/dL (0.6-1.0)
[2018-12-07 07:36] LABS: HEMOGLOBIN 5.9 gm/dL (12.0-15.0)
[2018-12-07 08:35] VITALS: BP 162/81
--- NOTE | 2018-12-07 08:39 | HC ---
[facility] [place] [address] CONSULTATION Name: MAR CHUN Room #: 361-P ADM IN M.R.#: [id number] Admission: 12/01/18 Attend Phys: Xavier Healy MD Discharge: Date of : 45 Report #: [id number] THIS REPORT FOR: //name// CC: [facility] physician/PCP Ludwin Cherry REASON FOR CONSULTATION: Chronic kidney disease. REASON FOR PRESENTATION: Shoulder pain radiating to the arms. HISTORY OF PRESENT ILLNESS: Well-known patient to us. She is on end-stage renal disease due to diabetes mellitus and diabetic nephropathy. She is known to have coronary artery disease, status post heart catheterization back in 2014 with a drug-eluting stent to the circumflex. She has been chest pain free up until June of this year when she started to have similar symptoms. She presented yesterday with left shoulder pain radiating to the left upper extremity concerning for an angina equivalent and was admitted accordingly. From the renal perspective, she is known to have advanced chronic kidney disease. She previously has a baseline creatinine of around 3; however, this had been progressing. Most recently, her creatinine was in the 4 range. She is being prepared for hemodialysis and is supposed to go and see our vascular surgeon to place an AV fistula to initiate her on dialysis. PAST MEDICAL HISTORY: 1. Coronary artery disease. 2. Diabetes mellitus. 3. Hypertension. 4. End-stage renal disease. 5. Post-cholecystectomy. 6. Seizure disorder. 7. Peripheral neuropathy. ALLERGIES: LISINOPRIL. FAMILY HISTORY: Significant for hypertension and coronary artery disease. SOCIAL HISTORY: No reported drug or alcohol abuse. MEDICATIONS: 1. Ferrous sulfate. 2. Atorvastatin. 3. Clonidine. 4. Furosemide. 5. Metolazone. REVIEW OF SYSTEMS: GENERAL: No fever or chills. [facility] [address] [place] [address] CONSULTATION Name: MAR CHUN Room #: 361-P [facility] IN ..#: [id number] Admission: 12/01/18 Attend Phys: Xavier Healy MD Discharge: Date of : 45 Report #: [id number] CARDIOVASCULAR: As per the history of present illness. PULMONARY: No cough or hemoptysis. GASTROINTESTINAL: No nausea or vomiting. GENITOURINARY: No frequency, no urgency. MUSCULOSKELETAL: Left shoulder pain. NEUROLOGICAL: No headache, no dizziness. SKIN: No rash or ulcerations PHYSICAL EXAMINATION: VITAL SIGNS: His blood pressure is 150/56, pulse is 69, temperature is 37. HEAD AND NECK: No jugular venous distention, no bruit, no thyromegaly. CHEST: No crackles. CARDIOVASCULAR: Regular with no rub detected. ABDOMEN: Soft, nontender with no hepatosplenomegaly. LOWER EXTREMITIES: No edema with intact peripheral pulses. LABORATORY DATA: Reviewed. Hemoglobin is 8.3. Sodium is 136, potassium is 3.6, BUN is 100, creatinine is 4.0. IMPRESSION AND PLAN: 1. Chronic kidney disease. 2. Angina equivalent. 3. Known history of coronary artery disease. 4. Hypertension. 5. Hyperlipidemia. 6. Anemia. 7. Diabetes mellitus. 8. Very concerning presentation with typical symptoms of coronary artery disease and elevated troponin. She previously had a drug-eluting stent to her circumflex back in 2014. She will likely need another catheter and the risk of contrast was discussed with the patient. The patient is being prepared for dialysis and is supposed to have a visit with the vascular surgeon for an AV fistula this month. 9. We will discuss with the cardiac team. I am hoping that we could get her through after the cardiac catheterization without the need to dialysis. Otherwise, we will have to place a temporary or a tunneled dialysis catheter and initiate on dialysis and arrange for the AV fistula to be placed down the road. 10. Blood pressure control. 11. We will continue to follow. <ELECTRONICALLY SIGNED> By: Ari Pimentel MD 12/07/18 0839 0918 0020 Ari Pimentel MD /nt
--- NOTE | 2018-12-07 09:53 | NUR ---
FIRST UNIT OF BLOOD GIVEN BY FINANCIAL AID MANAGER.
--- NOTE | 2018-12-07 11:24 | NUR ---
PT WILL OBTAIN NEW TUNNELED DIALYSIS CATHETER IN THE AM. PT HAD CP AT THE BEGINING OF DIALYSIS AND AL-ABSI ORDERED CXRY. CHEST PAIN HAS RESOLVED.
[2018-12-07 12:16] VITALS: BP 169/59
[2018-12-07 13:15] VITALS: BP 162/81
--- NOTE | 2018-12-07 13:17 | NUR ---
ON-GOING ASSESSMENT: CM REVIEWED CHART AND SPOKE WITH ATTENDING. PT IS GETTING HER SECOND DIALYSIS TREATMENT TODAY. PTS HEMOGLOBIN IS ALSO LOW AND PT IS TO GET TRANSFUSION. LAURA HAS BEEN WORKING WITH [facility] TO SET UP A CHAIR TIME FOR PATIENT. LAURA SPOKE WITH ROHITH AT [facility] WHO GAVE A LIST OF CHAIR TIMES OPEN FOR PATIENT FOR TUESDAYS/THURSDAYS/SATURDAYS. LAURA DISCUSSED WITH PATIENT AND HER FAMILY AND SHE WANTS TO DO 10:30AM CHAIR TIME. PTS FAMILY WILL ROTATE TAKING HER TO DIALYSIS. LAURA NOTIFIED ROHITH AT [facility] OF HER CHAIRTIME REQUEST. PT IS TO GET PERMANENT DIALYSIS CATHETER TOMORROW. ONCE PT IS MEDICALLY STABLE CM WILL NEED TO FAX FLOW SHEETS AND HEP B SURFACE ANTIGEN TO [facility]. CM WILL CONTINUE TO FOLLOW TO ASSIST NEEDED.
--- NOTE | 2018-12-07 14:10 | NUR ---
Assess due to pt new start of dialysis. Appetite has been fair but just not real fond of food. Wt loss about 7 lb from 06/2018-mild loss. Reviewed alternative menu with pt and indicated staff available for assistance to help with renal choices. Diet education provided to pt and family. Pt does not want any oral supplements. Low nutrition risk
[2018-12-07 16:08] LABS: HEPATITIS B SURFACE AG Negative (Negative)
[2018-12-07 17:08] VITALS: BP 150/56
--- NOTE | 2018-12-07 17:35 | NUR ---
PT HAD DIALYSIS AGAIN TODAY AND 2 UNITS PRBC TRANSUFSED DURING DIALYSIS. PT WILL HAVE TUNNELED DIALYSIS CATH PLACED IN THE AM AND BE NPO AFTER NIDNIGHT. WILL CONTINUE TO ASSESS.
[2018-12-07 20:25] LABS: HEMATOCRIT 25.9 % (37.0-47.0)
[2018-12-07 20:31] LABS: HEMOGLOBIN 8.9 gm/dL (12.0-15.0)
[2018-12-07 20:40] VITALS: BP 150/52
--- NOTE | 2018-12-08 02:36 | NUR ---
ASSUMED CARE OF PT AT 1900. A&Ox4, COOPERATIVE. VS STABLE. SR ON TELE. DENIED PAIN. GROIN SITE MONITORED FROM STENT PLACEMENT. DRESSING STILL IN PLACE, C/D/I, TENDER TO PALPATION, NO HEMATOMA OR BRUISING OBSERVED. PT AND FAMILY HAVE SEVERAL QUESTIONS REGARDING TUNNELED DIALYSIS CATHETER, INFORMATION PROVIDED ABLE. UP TO BEDSIDE COMMODE, SMALL BM AND 500mL UOP SO FAR THIS SHIFT. NPO SINCE MIDNIGHT FOR PROCEDURE. CURRENTLY RESTING. DAUGHTER AT BEDSIDE. PROGRESSING WELL TOWARDS POC GOALS.
[2018-12-08 04:00] VITALS: BP 138/58
[2018-12-08 05:52] LABS: HEMATOCRIT 25.1 % (37.0-47.0); HEMOGLOBIN 8.6 gm/dL (12.0-15.0); MCH 29.3 pg (26.0-34.0); MCHC 34.3 g/dL (28.0-37.0); MCV 85.4 fL (80.0-100.0); RBC 2.93 mil/uL (4.20-5.00); RDW 15.5 % (10.5-14.5); WBC 5.8 thou/uL (4.0-11.0)
[2018-12-08 06:08] LABS: ALBUMIN 2.5 g/dL (3.4-5.0); PHOSPHORUS 4.3 mg/dL (2.5-4.9); POTASSIUM 3.5 mmol/L (3.5-5.1)
[2018-12-08 06:11] LABS: CREATININE 4.7 mg/dL (0.6-1.0)
[2018-12-08 09:24] VITALS: BP 154/85
--- NOTE | 2018-12-08 14:32 | NUR ---
on-going assessment: LAURA REVIEWED CHART AND MET WITH PT AT THE BEDSIDE. PT WAS A LIKELY DISCHARGE TODAY. LAURA SOPKE WITH DR. GONSALES PT GOT HER PERMANENT DIALYSIS CATHETER TODAY AND RECEIVED THIRD DIALYSIS TREATMENT. LAURA NOTIFIED HIM THAT [facility] HAS ARRANGED HER OUTPATIENT DIALYSIS BUT ONLY SCHEDULE AVAILABLE WAS T-TH-SAT 1030AM. HE STATES PATIENT CAN START DIALYSIS ON THURSDAY. LAURA NOTIFIED ROHITH AT [facility] AND ALSO NOTIFIED PT THEY WOULD LIKE HER TO COME INTO THEIR OFFICE ON THURSDAY TO COMPLETE PAPERWORK BEFORE DIALYSIS ON THURSDAY. LAURA INSTRUCTED PT SHE WOULD NEED TO BRING HER PHOTO ID, INSURANCE CARD, BOTTLES OF MEDS, AND A BLANKET. PT HAD SAT EXERCISE TEST COMPLETED AND DOES NOT REQUIRE HOME OXYGEN. PTS FAMILY IS THERE WITH PT TO TAKE HER HOME.
[2018-12-08] MEDS ORDERED: METOPROLOL SUCC50 MG PO (15:52)
[2018-12-08] MEDS ORDERED: IMDUR 30 MG TAB30 M1 PO (15:52)
[2018-12-08] MEDS ORDERED: CLOPIDOGREL75 MG PO (15:52)
[2018-12-08 16:03] VITALS: BP 162/81
[2018-12-08 16:06] VITALS: BP 150/66
[2018-12-08 16:43] VITALS: BP 162/81
== END 2018-12-08 18:30 | disposition home or self-care (01) | DRG 246 ==
LOC: ER 17:07 → 3W 19:31 → EROBS 19:31 → 3W 22:19 → ENTRNSPT 12-08 18:09 → 3W 12-08 18:30
PROVIDERS: Emergency Medicine; Hospitalist; Internal Medicine; Internal Medicine Cardiovascular Disease; Nurse Practitioner Acute Care; Physician Assistant; ADMIT Internal Medicine
PROC: B2151ZZ Fluoroscopy of Left Heart using Low Osmolar Contrast (ICD-10-PCS; principal; 2018-12-02)
PROC: 027034Z Dilation of Coronary Artery, One Artery with Drug-eluting Intraluminal Device, Percutaneous Approach (ICD-10-PCS; principal; 2018-12-02)
PROC: 4A023N8 Measurement of Cardiac Sampling and Pressure, Bilateral, Percutaneous Approach (ICD-10-PCS; principal; 2018-12-02)
PROC: B2111ZZ Fluoroscopy of Multiple Coronary Arteries using Low Osmolar Contrast (ICD-10-PCS; principal; 2018-12-02)
PROC: B5181ZA Fluoroscopy of Superior Vena Cava using Low Osmolar Contrast, Guidance (ICD-10-PCS; 2018-12-06)
PROC: 5A1D70Z Performance of Urinary Filtration, Intermittent, Less than 6 Hours Per Day (ICD-10-PCS; 2018-12-06)
PROC: B548ZZA Ultrasonography of Superior Vena Cava, Guidance (ICD-10-PCS; 2018-12-06)
PROC: 02HV33Z Insertion of Infusion Device into Superior Vena Cava, Percutaneous Approach (ICD-10-PCS; 2018-12-06)
PROC: 30233N1 Transfusion of Nonautologous Red Blood Cells into Peripheral Vein, Percutaneous Approach (ICD-10-PCS; 2018-12-07)
PROC: 5A1D70Z Performance of Urinary Filtration, Intermittent, Less than 6 Hours Per Day (ICD-10-PCS; 2018-12-07)
PROC: 5A1D70Z Performance of Urinary Filtration, Intermittent, Less than 6 Hours Per Day (ICD-10-PCS; 2018-12-08)
PROC: 0JH63XZ Insertion of Tunneled Vascular Access Device into Chest Subcutaneous Tissue and Fascia, Percutaneous Approach (ICD-10-PCS; 2018-12-08)
PROC: B548ZZA Ultrasonography of Superior Vena Cava, Guidance (ICD-10-PCS; 2018-12-08)
PROC: 02HV33Z Insertion of Infusion Device into Superior Vena Cava, Percutaneous Approach (ICD-10-PCS; 2018-12-08)
PROC: B5181ZA Fluoroscopy of Superior Vena Cava using Low Osmolar Contrast, Guidance (ICD-10-PCS; 2018-12-08)
DX: I21.4 Non-ST elevation (NSTEMI) myocardial infarction (principal); N18.6 End stage renal disease; I50.32 Chronic diastolic (congestive) heart failure; I13.2 Hypertensive heart and chronic kidney disease with heart failure and with stage 5 chronic kidney disease, or end stage renal disease; D62 Acute posthemorrhagic anemia; E11.22 Type 2 diabetes mellitus with diabetic chronic kidney disease; I25.10 Atherosclerotic heart disease of native coronary artery without angina pectoris; E11.42 Type 2 diabetes mellitus with diabetic polyneuropathy; D63.1 Anemia in chronic kidney disease; E78.5 Hyperlipidemia, unspecified; I27.20 Pulmonary hypertension, unspecified; E87.5 Hyperkalemia; Z79.4 Long term (current) use of insulin; Z95.5 Presence of coronary angioplasty implant and graft; Z86.73 Personal history of transient ischemic attack (TIA), and cerebral infarction without residual deficits; Z98.42 Cataract extraction status, left eye; Z98.41 Cataract extraction status, right eye; Z90.49 Acquired absence of other specified parts of digestive tract; Z88.8 Allergy status to other drugs, medicaments and biological substances; Z82.49 Family history of ischemic heart disease and other diseases of the circulatory system; Z79.82 Long term (current) use of aspirin
CPT/HCPCS: 10879; 32100

== ENCOUNTER 2018-12-09 06:21 | Inpatient (IN) | payer OTHER ==
[~2018-12-09] VITALS: Ht 152.4 cm; Wt 67.6 kg
--- NOTE | ~2018-12-09 | EMS ---
[address] [address] EMS Patient Care Report Name: MAR CHUN Room #: REG Reema#: [id number] Admission: 12/09/18 Attend Phys: Discharge: Date of : 45 Report #: [id number] THIS REPORT FOR: //name// Report Transmitted: 12/09/2018 07:00 EMS Care Summary [place], [place]/[facility] Incident [id number] @ 12/09/2018 05:35 Incident Location [address] [address] [place] [id number] Patient MAR CHUN Female, 73 Years 1945 Patient Address [address] [place], [place] [id number] Patient History Cardiac - Stent,Type 2 Diabetes, Patient Allergies Lisinopril, Chief Complaint lower back pain Disposition Transported No Lights/[place] Dispatch Reason Sick Person Transported To [facility] Narrative Upon arrival on scene, Pt was found sitting upright in a chair, fully alert and oriented, w/ cc of lower back pain, and some slight nausea. She stated that she was released from [facility] yesterday for a cardiac episode. She denied any injury or trauma. She denied any SOB. She was calm and [facility] [address] [place] [address] EMS Patient Care Report Name: MAR CHUN Room #: REG ER Reema#: [id number] Admission: 12/09/18 Attend Phys: Discharge: Date of : 45 Report #: [id number] cooperative. She requested to be transported to [facility] for a further evaluation. She was transported w/out issues and care was transferred. Initial Vitals @06:00P: 105,R: 18,BP: 182/71,Pain: 10/10,GCS: 15,CO: 1,SpO2: 100,Revised Trauma: 12, @05:57P: 108,R: 18,BP: 195/74,Pain: 10/10,GCS: 15,CO: 3,SpO2: 100,Revised Trauma: 12, @06:01P: 101,R: 18,Pain: 10/10,GCS: 15,CO: 1,SpO2: 99, Assessments @05:44MENTAL:Person Oriented,Time Oriented,Place Oriented,Event Oriented,SKIN:Hot,HEENT:Head/Face: No Abnormalities,Eyes: No Abnormalities,Neck/Airway: No Abnormalities,LUNG SOUNDS:General: Nausea,ABDOMEN:General: Nausea,PELVIS//GI:No Abnormalities,EXTREMITIES:Left Arm: No Abnormalities,Right Arm: No Abnormalities,Left Leg: No Abnormalities,Right Leg: No Abnormalities,PULSE:NEURO:No Abnormalities, Impression Back Pain Timeline 05:33,Call Received 05:33,Dispatch Notified 05:35,Dispatched 05:37,En Route 05:41,On Scene 05:43,At Patient 05:57,BP: 195/74 M,PULSE: 108,RR: 18 R,SPO2: 100 Ox,ETCO2: ,BG: ,PAIN: 10,GCS: 15, 05:59,Depart Scene 06:00,BP: 182/71 M,PULSE: 105,RR: 18 R,SPO2: 100 Ox,ETCO2: ,BG: ,PAIN: 10,GCS: 15, 06:01,BP: / M,PULSE: 101,RR: 18 R,SPO2: 99 Ox,ETCO2: ,BG: ,PAIN: 10,GCS: 15, 06:14,At Destination 06:40,Call Closed Disclaimer v1.1 Copyright 2019 [employer] This EMS Care Summary contains data elements from the applicable legal record (which may be displayed differently). It is designed to provide pertinent information for the following purposes: continuity of care, clinical quality, and state data reporting. The complete legal record is available to ED staff and administrators of the receiving hospital in ES's Patient Tracker. All data is provided "as is."
[~2018-12-09 06:21] MED LIST changes: +CLOPIDOGREL75 MG PO; +IMDUR 30 MG TAB30 M1 PO; +METOPROLOL SUCC50 MG PO
[2018-12-09 07:37] LABS: ABSOLUTE NEUTROPHILS 9.5 thou/uL (1.4-8.2); BASOPHILS 0.4 % (0.0-2.0); HEMATOCRIT 32.8 % (37.0-47.0); HEMOGLOBIN 11.1 gm/dL (12.0-15.0); LYMPHOCYTES 2.7 % (24.0-44.0); MCH 28.9 pg (26.0-34.0); MCHC 33.8 g/dL (28.0-37.0); MCV 85.4 fL (80.0-100.0); MONOCYTES 5.2 % (1.0-8.0); PLATELET COUNT 228 thou/uL (150-400); POLYS 91.7 % (36.0-66.0); RBC 3.84 mil/uL (4.20-5.00); RDW 15.4 % (10.5-14.5); WBC 10.4 thou/uL (4.0-11.0)
[2018-12-09 07:46] LABS: CALCIUM 9.4 mg/dL (8.5-10.1); CREATININE 3.8 mg/dL (0.6-1.0); POTASSIUM 3.7 mmol/L (3.5-5.1)
[2018-12-09 07:56] LABS: ALBUMIN 3.4 g/dL (3.4-5.0); TOTAL BILIRUBIN 0.8 mg/dL (<0.1-1.0); TOTAL PROTEIN 8.3 g/dL (6.4-8.2); TROPONIN-I 0.26 ng/mL (<0.06)
[2018-12-09 10:49] LABS: URINE BILIRUBIN NEGATIVE (Negative); URINE BLOOD TRACE (Negative); URINE CLARITY CLEAR; URINE COLOR YELLOW; URINE GLUCOSE-RANDOM* NEGATIVE (Negative); URINE KETONES 1+ (Negative); URINE LEUKOCYTES-REFLEX NEGATIVE (Negative); URINE NITRITE-REFLEX NEGATIVE (Negative); URINE PROTEIN (DIPSTICK) 2+ (Negative); URINE SPECIFIC GRAVITY 1.015 (1.005-1.035)
[2018-12-09 10:59] LABS: SQUAMOUS >10 Many /LPF (0-3)
[2018-12-09 11:00] LABS: BACTERIA-REFLEX 1-9 Few /HPF (None Seen); CASTS None Seen /LPF (None Seen); CRYSTALS None Seen /LPF (None Seen); URINE RBC 0-2 Rare /HPF (0-2); URINE WBC-REFLEX 6-15 Few /HPF (0-5)
[2018-12-09 16:23] VITALS: BP 185/73
[2018-12-09 16:37] VITALS: BP 187/74
--- NOTE | 2018-12-09 18:00 | NUR ---
DR. ZACARIAS CALLED. RE ORDERS. REPORTED HIGH BP AND BLOOD SUGAR 140. STATES HE IS PUTTING ORDERS IN.
[2018-12-09 18:35] LABS: URIC ACID* 3.2 mg/dL (2.6-7.2)
[2018-12-09 19:10] VITALS: BP 193/69
[2018-12-09 22:30] VITALS: BP 155/59
[2018-12-10 03:13] VITALS: BP 161/67
[2018-12-10 07:12] VITALS: BP 153/86
[2018-12-10 07:17] VITALS: BP 155/68
--- NOTE | 2018-12-10 07:49 | NUR ---
ASSUMED CARE AT 1900. PT DENIES ANY PAIN OR NAUSEA OVERNIGHT. TOLERATED CLEAR LIQUIDS PRIOR TO MIDNIGHT, THEN NPO AT MIDNIGHT FOR SURGERY CONSULT. SR WITH FREQ PAC'S, HR IN 90'S OVERNIGHT, OCCASIONALLY TACHY TO 120'S WHEN UP WALKING. LEFT CHEST TESSEO C/D/I. NO OTHER CONCERNS, SHIFT REPORT GIVEN AT 0700, PT IN STABLE CONDITION.
--- NOTE | 2018-12-10 08:32 | EKG ---
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 : 1945 Requested By: Timothy Larson Order Number: [id number] MD: Torito Burt Measurements Intervals [place] Rate: 94 P: 66 [place]: 167 QRS: 9 QRSD: 101 T: 164 QT: 355 QTc: 444 Interpretive Statements Sinus rhythm Poor R wave progression Nonspecific ST and T wave abnormality Compared to ECG 12/04/2018 05:00:55 Nonspecific change in the ST and T wave abnormality Electronically Signed On 12-10-2018 8:32:31 CDT by Torito Burt [email or web address] <ELECTRONICALLY SIGNED> By: Torito Burt MD, [facility] 12/10/18 0832 Torito Burt MD, [facility] /EPI
[2018-12-10 11:17] VITALS: BP 134/58
--- NOTE | 2018-12-10 14:31 | HC ---
[facility] [place] [address] CONSULTATION Name: MAR CHUN Room #: 359-P ADM IN M.R.#: [id number] Admission: 12/09/18 Attend Phys: Farzaneh Knapp MD Discharge: Date of : 45 Report #: [id number] THIS REPORT FOR: //name// CC: JAZZY physician/PCP Farzaneh GARCIA PCP DATE OF SERVICE: 12/09/2018 INFECTIOUS DISEASE CONSULTATION REASON FOR CONSULTATION: I was asked to evaluate concerning retroperitoneal inflammatory change, possible infection. HISTORY OF PRESENT ILLNESS: The patient is a 73-year-old hospitalized on 12/02/2018 with chest pain, found to have acute TN. She underwent cardiac catheterization and stenting. She also had underlying diabetes and chronic kidney disease and developed end-stage renal disease, requiring dialysis. She had a temporary dialysis catheter placed in her right IJ. She later, after 3 days of dialysis, had a tunneled catheter placed in the left chest. During her hospital stay, she had development of anemia down to 5.9 on 12/07/2018. She did receive 2 units of packed cells transfused. Denied any fever, chills or sweats. She was discharged yesterday, only to return within 12 hours with nausea, vomiting and right low back pain. No fever, chills or sweats. No lower abdominal pain or diarrhea. No dysuria. Denies any other joint issues. She has no trauma. Emesis was mostly phlegm. No hematemesis. No blood in her stool. No other cough or sputum production. No chest pain. ALLERGIES: LISINOPRIL. MEDICATIONS: As noted on her MAR, having received vancomycin and Zosyn in the Emergency Room. Other medicines included clopidogrel, Imdur, metoprolol, aspirin, Lipitor, iron, Norvasc, Cozaar, clonidine, Lasix, terazosin. PAST MEDICAL HISTORY: Diabetes, cardiac stents, hypertension, stroke, cholecystectomy, cataract surgery, end-stage renal disease, anemia, seizure, left carotid endarterectomy. FAMILY HISTORY: Noncontributory. SOCIAL HISTORY: Nonsmoker, no significant alcohol. REVIEW OF SYSTEMS: Ten-point review was negative other than what has been described above. PHYSICAL EXAMINATION: [facility] [address] [place] [address] CONSULTATION Name: MAR CHUN Room #: 359-P [facility] IN .R.#: [id number] Admission: 12/09/18 Attend Phys: Farzaneh Knapp MD Discharge: Date of : 45 Report #: [id number] VITAL SIGNS: Afebrile and hemodynamically stable. GENERAL: She is alert and oriented and sitting up to the side of the bed. SKIN: Without rash or decubitus. No palpable adenopathy. EYES: Without scleral icterus. MOUTH: Without mucositis. NECK: Supple, with no thyromegaly or mass. Previous right dialysis catheter site was dressed without drainage. The left chest tunneled dialysis catheter site was unremarkable with no drainage or significant tenderness. CHEST: Clear. HEART: Regular, without murmur, gallop or rub. ABDOMEN: Soft, nontender, no hepatosplenomegaly or mass appreciated. The right groin access site from her catheterization was without drainage. Pulse was normal. I did not appreciate any mass. I did not appreciate any inguinal adenopathy. Mild right CVA tenderness. No percussion tenderness to the spine. EXTREMITIES: Without clubbing, cyanosis or edema. NEUROLOGIC: Cranial nerves were intact. Strength in the upper and lower extremities was normal. Sensation was intact. LABORATORY STUDIES: Sedimentation rate was 30. Procalcitonin 0.6. LDH was 334. Troponin 0.32. Influenza antigen negative. Urinalysis unremarkable. Lactic acid 1.4. Sodium 136, potassium 3.7, bicarbonate 25, creatinine 3.8, lipase 159. Liver function test normal. Hemoglobin 11.1, WBC 10.4, platelet count 228,000, differential unremarkable. RADIOLOGIC DATA: Chest x-ray was clear with a small left base effusion. CT of the abdomen and pelvis showed right retroperitoneal possible inflammatory change with mildly enlarged retroperitoneal and left iliac adenopathy. Ill-defined stranding density, some edema diffusely. Changes extended into the pelvis on the right and into the right groin. There is also a right external iliac mass 2.7 x 1.8. IMPRESSION: A 73-year-old with recent myocardial infarction with cardiac stent to the right coronary artery 1 week ago. New-onset end-stage renal disease for now requiring dialysis. Presents with acute nausea, vomiting and right back pain. CT scan shows possible inflammatory change in the right groin and retroperitoneum. There is described a mass in this region that would be more concerning about complications from her arterial access to the right groin last week during catheterization. It is noted that her hemoglobin had dropped down to 5.9 on 12/07/2018. I am not getting the sense that we are dealing with uncontrolled infection at this point. There is no fever, toxicity or leukocytosis. The procalcitonin also was normal. Right now, it is unclear if the lymphadenopathy in this region is reactive or not. RECOMMENDATION: The patient has already received broad antibiotic therapy today. I think it is reasonable to hold this now and to follow. In the morning, we will discuss further with Radiology regarding the findings on the CT [facility] [place] [address] CONSULTATION Name: ADIELMARAlfonso CABRERA Room #: 359-P ADM IN M.R.#: [id number] Admission: 12/09/18 Attend Phys: Farzaneh Knapp MD Discharge: Date of : 45 Report #: [id number] scan. We will likely need to follow these over time. We will recheck a CBC in the a.m. to reassess her hemoglobin. <ELECTRONICALLY SIGNED> By: Timothy Rodriguez MD 12/10/18 1431 [id number] Timothy Rodriguez MD /nt
[2018-12-10 15:29] VITALS: BP 134/57
--- NOTE | 2018-12-10 16:20 | NUR ---
Assumed care approx. 0700 this AM. Patient family at bedside most of the shift. Fall precautions dc'd-pt steady, balanced and doesn't feel weak like she did previously. Renal diet restarted today as the doctors decided no interventions needed today. Plan for hemodialysis tomorrow-orders entered per Dr. Pimentel. No surgical interventions planned at this time. Patient progressing toward plan of care.
[2018-12-10 19:45] VITALS: BP 147/51
[2018-12-11 04:29] VITALS: BP 137/68
--- NOTE | 2018-12-11 05:03 | NUR ---
Pt. slept well during the night with family member at bedside. Afebrile. Up ad patricia in room with steady gait. SB when sound asleep in the upper 50's otherwise SR in the 70's to 80's. Making progress towards care plan goals.
[2018-12-11 07:34] VITALS: BP 152/72
[2018-12-11 10:45] LABS: APTT 27.4 Seconds (24.5-32.8); INR 1.1; PROTIME 11.4 Seconds (9.3-11.4)
[2018-12-11 12:06] VITALS: BP 110/43
[2018-12-11 15:11] VITALS: BP 138/57
--- NOTE | 2018-12-11 16:17 | NUR ---
PT ALERT AND ORIENTED TIMES FOUR. VSS, 97%RA SR ON TELE. PT DENIES PAIN/SOA. PT CURRRENTLY GETTING DIALYSIS. PT TOLERATES MEDS AND MEALS. PT FAMILY MEMBERS AT BEDSIDE THIS AFTERNOON. PT SLOWLY PROGRESSING POC GOALS.
[2018-12-11 20:03] VITALS: BP 135/63
[2018-12-12 03:19] VITALS: BP 126/68
--- NOTE | 2018-12-12 04:36 | NUR ---
PT IS A/0 X4. TYLENOL GIVEN FOR RENNER AT 1753. PT STILL HAVING COMPLAINTS OF RENNER AT 2300. CALLED [employer] OPERATOR AND DISCUSSED OPTIONS SINCE PT IS ESRD AND WE SHOULD HOLD NSAIDS. RECEIVED ORDERS FOR TRAMADOL, WHICH PROVIDED GOOD RESULTS. ALSO EDUCATED PT ON STAYING HYDRATED AFTER DIALYSIS. PT KARYFELI IS C/D/I. DAUGHTER ROOMING IN. NO FURTHER COMPLAINTS. WILL CONTINUE TO ROUND AND ASSESS.
[2018-12-12 04:40] LABS: HEMATOCRIT 25.5 % (37.0-47.0); MCH 29.1 pg (26.0-34.0); MCHC 33.5 g/dL (28.0-37.0); MCV 86.9 fL (80.0-100.0); RBC 2.93 mil/uL (4.20-5.00); WBC 7.2 thou/uL (4.0-11.0)
[2018-12-12 04:42] LABS: HEMOGLOBIN 8.5 gm/dL (12.0-15.0)
[2018-12-12 05:00] LABS: ALBUMIN 2.7 g/dL (3.4-5.0); CALCIUM 8.2 mg/dL (8.5-10.1); CREATININE 3.5 mg/dL (0.6-1.0); PHOSPHORUS 2.9 mg/dL (2.5-4.9); POTASSIUM 3.2 mmol/L (3.5-5.1)
[2018-12-12 08:20] VITALS: BP 128/55
[2018-12-12 11:47] VITALS: BP 131/62
[2018-12-12 17:02] VITALS: BP 149/67
--- NOTE | 2018-12-12 18:04 | NUR ---
ASSUMED PATIENT CARE AT 0700. A/0 X4. UP AT SAVANA. DENIES PAIN. SB TO 45 WHEN SLEEP. POOR APPETITE. SLOWLY TOWARDS POC GOALS.
[2018-12-12 19:49] VITALS: BP 133/60
[2018-12-13 03:57] VITALS: BP 124/57
[2018-12-13 05:28] LABS: HEMATOCRIT 23.6 % (37.0-47.0); HEMOGLOBIN 8.1 gm/dL (12.0-15.0)
--- NOTE | 2018-12-13 05:35 | NUR ---
HgB CAME BACK AT 8.1 DOWN FROM 8.5. PT UP AD SAVANA. PT GRANDSON ROOMING IN. PT HAD NO COMPLAINTS OF HEADACHE THIS EVENING. VSS. WILL CONTINUE TO MONITOR. DIALYSIS SITE C/D/I. HOURLY ROUNDING.
[2018-12-13 07:33] VITALS: BP 143/63
--- NOTE | 2018-12-13 07:56 | NUR ---
ASSESSMENT: CM REVIEWED CHART AND MET WITH PATIENT AT THE BEDSIDE. PT WAS RECENTLY DISCHARGED ON 12/08 AND READMITTED ON 12/09 FOR PERITONEAL HEMATOMA. PT WAS SET UP WITH OUTPATIENT DIALYSIS AT [facility] SCHEDULE WITH 1030 [address]ICCO TIME AND WAS TO START ON THURSDAY. PT REPORTS SHE LIVES AT HOME IN AN APT ALONE. PT REPORTS ABOUT 10-15 STEPS WITH HANDRAILS TO GET INTO THE APT. PT REPORTS SHE AMBULATES INDEPENDENTLY. PT REPORTS SHE HAS NOT HAD HH IN THE PAST OR BEEN TO A SNF. SHE STATES SHE IS TOO ACTIVE FOR THAT. LAURA NOTIFIED ROHITH AT [facility] THAT PATIENT WAS READMITTED. PER ATTENDING PT WILL BE HERE THROUGH THE WEEKEND. CM NOTIFIED ROH[facility] AT [facility]. CM WILL CONTINUE TO FOLLOW TO ASSIST NEEDED.
[2018-12-13 10:00] VITALS: BP 110/43
[2018-12-13 11:06] VITALS: BP 126/49
--- NOTE | 2018-12-13 13:10 | NUR ---
ON-GOING ASSESSMENT: CM REVIEWED CHART AND SPOKE WITH ATTENDING. PT IS SLOWLY PROGRESSING TOWARDS DISCHARGE GOALS BUT IS NOT MEDICALLY STABLE FOR DISCHARGE AT THIS TIME. PT IS POSSIBLE DISCHARGE TOMORROW. CM UPDATED ROH[facility] AT [facility]. CM WILL CONTINUE TO FOLLOW TO ASSIST NEEDED.
[2018-12-13 15:28] VITALS: BP 107/45
--- NOTE | 2018-12-13 16:42 | NUR ---
ASSUMED PATIENT CARE AT 0700. A/O X4. DENIES BACK PAIN. NO DISDRESS NOTED. SLOWLY TOWARDS POC GOALS.
[2018-12-13 19:20] VITALS: BP 129/57
[2018-12-14 04:50] LABS: HEMATOCRIT 23.7 % (37.0-47.0); HEMOGLOBIN 7.9 gm/dL (12.0-15.0); MCHC 33.4 g/dL (28.0-37.0); MCV 86.9 fL (80.0-100.0); RBC 2.73 mil/uL (4.20-5.00); RDW 14.6 % (10.5-14.5); WBC 8.1 thou/uL (4.0-11.0)
[2018-12-14 05:04] LABS: CALCIUM 8.6 mg/dL (8.5-10.1); POTASSIUM 3.3 mmol/L (3.5-5.1)
[2018-12-14 05:07] LABS: CREATININE 6.2 mg/dL (0.6-1.0)
[2018-12-14 05:37] VITALS: BP 148/54
--- NOTE | 2018-12-14 05:47 | NUR ---
Pt. stated she finally had a good night sleep. Denies an pain/concern this am. Up ad patricia in room with steady gait. Progressing towards care plan goals.
[2018-12-14 07:44] VITALS: BP 155/66
--- NOTE | 2018-12-14 09:00 | HC ---
[facility] [place] [address] CONSULTATION Name: MAR CHUN Room #: 359-P ADM IN M.R.#: [id number] Admission: 12/09/18 Attend Phys: Farzaneh Knapp MD Discharge: Date of : 45 Report #: [id number] THIS REPORT FOR: //name// CC: Lamar Delarosa [facility] physician/PCP Blaine Knapp MD NO PCP SCOT Brewster MD REQUESTING PHYSICIAN: Dr. Farzaneh Knapp. PRIMARY CARE PHYSICIAN: Dr. Lamar Delarosa. REASON FOR CONSULTATION: Possible right external iliac adenopathy and stranding. HISTORY OF PRESENT ILLNESS: The patient is a 73-year-old female who is originally from [place], who has been here for about 28 years, who was recently in the hospital for a stf-[id number]-pqpnioch ME with, I believe, stents and Plavix and an angiogram on the who was admitted for fevers, chills, and a CAT scan, found some slightly enlarged lymph nodes in the right groin and retroperitoneum. Note that with a talk about is a larger cyst in the right external iliac region measuring 2.7 x 1.8 cm, there is also retroperitoneal lymph node maximum measure 1.5 x 1 cm. Also, there is some inflammation in the area. Note that the body of the report mentions the right, the impressions mentions left. When I look at the films, it looks to me like the changes are on the right. Before that ME, the patient had not had any weight change, leg swelling, unexplained fevers, or sweats. No skin rash. No history of cancers that she is aware of. Now, the patient was admitted with fevers and chills and slight abdominal discomfort, seems to be somewhat better. No bowel changes. No new arm or leg swelling. Does have the slight discomfort in the right groin, status post procedure. Note that also at the time of the procedure, the patient's hemoglobin had been in the mid 8, dropped to 5.9 with about a 2.4/2.5 gram drop. She has now been transfused and appears to be stable without any definite evidence of bleeding. PAST MEDICAL HISTORY: Notable for the history of chronic kidney disease with recent catheter placements in the chest for hemodialysis. Also, she has a history of a kdh-TK-yefftsrp ME recently. They did place a 2.5 x 12 Jackelin medicated stent in the proximal RCA lesion. It sounds like there might have been some prior stents in the LAD, if I understand correctly. ____ might have been a circumflex stent also. Also, she has a history of stroke in the past, diabetes, cholecystectomy, cataract surgery, seizures, and left [place] [address] CONSULTATION Name: MAR CHUN Room #: 359-P ADM IN M.R.#: [id number] Admission: 12/09/18 Attend Phys: Farzaneh Knapp MD Discharge: Date of : 45 Report #: [id number] FAMILY HISTORY: Father and mother had hypertension. A brother had what sounds like lung cancer metastatic to brain. A sister had breast cancer ____. Her son, Felix who is with her is healthy. SOCIAL HISTORY: She has smoked very little when she was younger. No significant alcohol. No street drugs. MEDICATIONS: Here in the hospital currently include metoprolol 50 daily, isosorbide 30 daily, clopidogrel 75 daily, terazosin 5 mg daily, atorvastatin 40 mg daily, clonidine 0.1 b.i.d., losartan 100 b.i.d., amlodipine 5 b.i.d., fentanyl p.r.n., Tylenol p.r.n., and Zofran p.r.n. The patient had been on antibiotics, but I think it had been discontinued. PHYSICAL EXAMINATION: GENERAL: The patient appears her stated age. VITAL SIGNS: One height is 5 feet 5 inches, another says 5 feet that she is either 165 or 152 cm. Weight is 150 pounds or 68 kilograms. MOOD: The patient is alert, conversant, and pleasant. NEUROLOGIC: Speech and thought pattern appear to be normal. Moving all extremities, though somewhat slowly because of the recent right groin procedure. LUNGS: Clear with good symmetric respirations without rhonchi or rales. HEART: Regular rate. LYMPHATICS: No enlarged lymph nodes in the supraclavicular, cervical, axillary, or inguinal region. Note the right groin has changes from the right groin procedure. No definite enlarged lymph nodes. LABORATORY DATA: Lab here notable for a BUN of 32, creatinine of 3.8, albumin 3.4. Iron studies show an iron of 18, percent saturation of 12, TIBC 148. Coags had been normal. Recent white count 10.4, hemoglobin 11.1 after transfusion, platelets 228. Differential nonacute. B12 was recently 1093, folate 48.6. ASSESSMENT AND PLAN: 1. Right external iliac lymph nodes and retroperitoneal stranding. I suspect this may be related to recent procedure and bleeding given the drop in hemoglobin. I think we have to balance the need to do a biopsy, which would require stopping the Plavix per the patient's risk for cardiac event versus the likelihood that these are reactive lymph nodes or if they are something like lymphoma, is probably not going to harm the patient much to wait 4-6 weeks, repeat the CAT scan, and see if these are still persistent or enlarged. At this time, given the balance, I think there is a higher risk from stopping the Plavix and there is benefit from doing a biopsy as I think these are likely reactive. I explained this to the patient and her son and they are in agreement with waiting at this time, I would suggest then repeating a CAT scan in about 6 or [address] [address] CONSULTATION Name: CHUNMARAlfonso CABRERA Room #: 359-P [facility] IN .R.#: [id number] Admission: 12/09/18 Attend Phys: Farzaneh Knapp MD Discharge: Date of : 45 Report #: [id number] 2. Recent eet-UQ-ecwqxvce myocardial infarction with stents placed on Plavix. Defer to doctor Jax and Dr. Atkins. 3. Chronic kidney disease, on hemodialysis. Defer to Dr. Eamon Brewster. 4. Diabetes. Defer to others. 5. Hypertension. Defer to others. 6. Lipids. Defer to others. 7. Anemia. We will defer to others, especially with dialysis. <ELECTRONICALLY SIGNED> By: Kenji Zaman MD 12/14/18 0900 0821 [id number] Kenji Zaman MD /malathi
[2018-12-14 11:25] VITALS: BP 177/73
--- NOTE | 2018-12-14 12:43 | NUR ---
ON-GOING ASSESSMENT: CM REVIEWED CHART AND SPOKE WITH ATTENDING. PTS HEMOGLOBIN CONTINUES TO DROP AND IS CURRENTLY 7.9. PT IS TO GET A CT SCAN. CM NOTIFIED ROHITH AT [facility] THAT PATIENT IS NOT DISCHARGING TODAY. CM WILL CONTINUE TO FOLLOW TO ASSIST NEEDED.
--- NOTE | 2018-12-14 13:39 | NUR ---
Followup: new wt obtained, standing at 149 lb. Pt states usual wt is 153 lb, so no significant change from usual. Eating fair but does not like the food much. Will only drink sips of Nepro, wants to try different flavor. Pt states she is likely being discharged today. Encouraged to trial nepro drinks of flavor preferences while at dialysis and stressed importance of adequate nutrition intake.
[2018-12-14 15:25] VITALS: BP 141/67
[2018-12-14 17:27] VITALS: BP 141/67
--- NOTE | 2018-12-14 17:48 | NUR ---
ASSUMED PATIENT CARE AT 0700 A/O X4. TOLERAYED HD TODAY. DENIES PAIN. PROGRESSING TOWARDS POC GOALS. DC TO [facility].
--- NOTE | 2018-12-15 14:38 | NUR ---
CM FAXED D/C PAPERWORK AND FLOWSHEETS TO [facility].
== END 2018-12-14 18:45 | disposition home or self-care (01) | DRG 393 ==
LOC: ER 06:21 → 3W 09:22 → EROBS 09:22 → 3W 16:51 → ENTRNSPT 12-14 18:09 → 3W 12-14 18:45
PROVIDERS: Emergency Medicine; Hospitalist; Internal Medicine; ADMIT Internal Medicine
PROC: 5A1D70Z Performance of Urinary Filtration, Intermittent, Less than 6 Hours Per Day (ICD-10-PCS; principal; 2018-12-14)
DX: K66.1 Hemoperitoneum (principal); N18.6 End stage renal disease; I21.4 Non-ST elevation (NSTEMI) myocardial infarction; E43 Unspecified severe protein-calorie malnutrition; N39.0 Urinary tract infection, site not specified; D62 Acute posthemorrhagic anemia; I12.0 Hypertensive chronic kidney disease with stage 5 chronic kidney disease or end stage renal disease; I31.3 Pericardial effusion (noninflammatory); I25.10 Atherosclerotic heart disease of native coronary artery without angina pectoris; E11.42 Type 2 diabetes mellitus with diabetic polyneuropathy; E11.22 Type 2 diabetes mellitus with diabetic chronic kidney disease; E78.5 Hyperlipidemia, unspecified; I35.0 Nonrheumatic aortic (valve) stenosis; Z88.8 Allergy status to other drugs, medicaments and biological substances; Z79.899 Other long term (current) drug therapy; Z79.82 Long term (current) use of aspirin; Z79.4 Long term (current) use of insulin; Z95.5 Presence of coronary angioplasty implant and graft; Z86.73 Personal history of transient ischemic attack (TIA), and cerebral infarction without residual deficits; Z90.49 Acquired absence of other specified parts of digestive tract; Z98.42 Cataract extraction status, left eye; Z98.41 Cataract extraction status, right eye; Z82.49 Family history of ischemic heart disease and other diseases of the circulatory system; Z80.3 Family history of malignant neoplasm of breast; Z80.1 Family history of malignant neoplasm of trachea, bronchus and lung; Z80.8 Family history of malignant neoplasm of other organs or systems; Z68.29 Body mass index [BMI] 29.0-29.9, adult
CPT/HCPCS: 10879; 32100

== ENCOUNTER 2020-08-09 05:47 | Emergency (ER) | payer OTHER ==
[2020-08-09 10:01] LABS: ALBUMIN 3.2 g/dL (3.4-5.0); CALCIUM 9.3 mg/dL (8.5-10.1); CREATININE 6.6 mg/dL (0.6-1.0); POTASSIUM 4.3 mmol/L (3.5-5.1); TOTAL BILIRUBIN 0.4 mg/dL (0.2-1.0); TOTAL PROTEIN 7.2 g/dL (6.4-8.2)
[2020-08-09 10:47] VITALS: BP 150/61
[2020-08-09 11:10] LABS: HEMATOCRIT 38.3 % (37.0-47.0); HEMOGLOBIN 11.8 gm/dL (12.0-15.0); MCV 84.5 fL (80.0-100.0); RBC 4.53 mil/uL (4.20-5.00); WBC 3.5 thou/uL (4.0-11.0)
[2020-08-09 11:11] LABS: BASOPHILS 0.9 % (0.0-2.0); EOSINOPHILS 1.2 % (0.0-3.0); LYMPHOCYTES 27.6 % (24.0-44.0); MCHC 30.8 % (28.0-37.0); MONOCYTES 11.2 % (1.0-8.0); PLATELET COUNT 175 thou/uL (150-400); POLYS 59.1 % (36.0-66.0); RDW 21.4 % (10.5-14.5)
[2020-08-09 13:44] LABS: ANISOCYTOSIS 2+; OVALOCYTES FEW
== END 2020-08-09 10:47 ==
LOC: ER 05:47
PROVIDERS: Emergency Medicine
DX: M54.5 Low back pain (principal); I10 Essential (primary) hypertension